=== PATIENT | male | born 1960 | race Caucasian/White ===

== ENCOUNTER 2016-11-07 13:15 | Day surgery (SDC) | payer OTHER ==
[2016-11-07 14:29] VITALS: RESP 18; TEMP 98
[2016-11-07 14:58] VITALS: BP 112/78; PULSE 92
--- NOTE | 2016-11-07 15:51 | US ---
EXAMINATION TYPE: US fine needle aspiration DATE OF EXAM: 11/07/2016 2:59 PM HISTORY: Supraclavicular mass, lung mass. FINDINGS: Maximal barrier technique was utilized. The skin overlying a suitable path to the patient' s mass in the supraclavicular location on the left was localized with ultrasound and the overlying sk in prepped and draped. Ultrasound was utilized with sterile technique. Lidocaine was used for local anesthesia. A 25-gauge needle was advanced under direct ultrasound guidance and aspirated specimen obtained of the mass. 3 additional passes with 25-gauge needle, single pass with 23-gauge were made. Specimen submitted to Pathology. Following the procedure, hemostasis achieved and the patient is di scharged in stable condition without complication. IMPRESSION:STATUS POST ULTRASOUND GUIDED FINE NEEDLE ASPIRATION BIOPSY OF left supraclavicular MASS, PATHOLOGY IS PENDING. THIS PROCEDURE IS PERFORMED BY THE UNDERSIGNED.
== END 2016-11-07 15:05 | disposition home or self-care (01) ==
LOC: RADPROMAIN 13:15
PROVIDERS: ATTEND Internal Medicine
DX: C77.0 Secondary and unspecified malignant neoplasm of lymph nodes of head, face and neck (principal)
CPT/HCPCS: 10022; 36415; 76942; 80048; 85025; 88173; 88305; 88341; 88342

== ENCOUNTER → 2016-11-07 | Outpatient (CLI) | payer OTHER ==
[2016-11-07 15:58] LABS: Basophils % (A) 0 %; CH 33.6; CHCM 34.8; Eosinophils % (A) 0 %; HCT 46.2 % (39.0-53.0); HDW 2.33; HGB 15.5 gm/dL (13.0-17.5); Luc # (Auto) 0.39; Luc % (Auto) 3; Lymphocytes # (A) 0.8 k/uL (1.0-4.8); Lymphocytes % (A) 6 %; MCH 32.5 pg (25.0-35.0); MCHC 33.6 g/dL (31.0-37.0); MCV 96.9 fL (80.0-100.0); Mean Platelet Volume 6.2; Monocytes # (A) 0.9 k/uL (0-1.0); Monocytes % (A) 6 %; Neutrophils % (A) 85 %; RBC 4.77 m/uL (4.30-5.90); RDW 12.2 % (11.5-15.5); WBC 14.1 k/uL (3.8-10.6)
[2016-11-07 16:09] LABS: Anion Gap 11 mmol/L; Blood Urea Nitrogen 11 mg/dL (9-20); Carbon Dioxide 29 mmol/L (22-30); Chloride 96 mmol/L (98-107); Glucose 101 mg/dL (74-99); Non-African American GFR(MDRD) >60 (>60 ml/min/1.73 sqM); Potassium 4.8 mmol/L (3.5-5.1); Sodium 136 mmol/L (137-145)
== END | disposition home or self-care (01) ==
LOC: LABWHC1 15:45
PROVIDERS: ATTEND Nurse Practitioner
DX: D72.829 Elevated white blood cell count, unspecified (principal); E87.1 Hypo-osmolality and hyponatremia
CPT/HCPCS: 36415; 80048; 85025

== ENCOUNTER 2016-11-23 14:08 | Inpatient (IN) | payer OTHER ==
[2016-11-23] MEDS ORDERED: MORPHINE SULFATE 4 MG/ML SYRINGE IVP STA (14:47)
[2016-11-23] MEDS ORDERED: ONDANSETRON 4 MG/2 ML VIAL IVP STA (14:47)
[2016-11-23 14:59] LABS: Basophils % (A) 0 %; CH 33.1; CHCM 35.1; Eosinophils % (A) 0 %; HCT 40.6 % (39.0-53.0); HDW 2.55; HGB 13.8 gm/dL (13.0-17.5); Luc # (Auto) 0.28; Luc % (Auto) 2; Lymphocytes # (A) 0.8 k/uL (1.0-4.8); Lymphocytes % (A) 4 %; MCH 32.2 pg (25.0-35.0); MCV 94.5 fL (80.0-100.0); Mean Platelet Volume 6.3; Monocytes # (A) 0.9 k/uL (0-1.0); Monocytes % (A) 5 %; Neutrophils % (A) 90 %; RBC 4.29 m/uL (4.30-5.90); WBC (Perox) 19.28
--- NOTE | 2016-11-23 15:03 | XR ---
EXAMINATION TYPE: XR chest 2V DATE OF EXAM: 11/23/2016 2:56 PM COMPARISON: Prior chest x-ray 02 November 2016 HISTORY: Difficulty breathing, small cell lung carcinoma TECHNIQUE: Frontal and lateral views of the chest are obtained. FINDINGS: Increasing opacity present in the left hemithorax, there is obscured left hemidiaphragm, l ikely left pleural effusion and associated atelectasis versus tumor. Interstitium is diffusely increa sed similar to prior exam. Heart is partially obscured. No pneumothorax. There are overlying cardiac leads. IMPRESSION: Findings may represent worsening of patient's tumor burden, pleural effusion and associa jeffrey atelectasis, there may be interstitial spread of patient's lung carcinoma.
[2016-11-23 15:13] LABS: INR 1.2 (<1.1); Partial Thromboplastin Time 27.7 sec (22.0-30.0)
--- NOTE | 2016-11-23 15:13 | ED ---
SOB HPI - General Chief Complaint: Shortness of Breath Stated Complaint: Diff breathing Time Seen by Provider: 11/23/16 14:30 Source: patient, family, RN notes reviewed Mode of arrival: ambulatory Limitations: no limitations - History of Present Illness Initial Comments: 48-year-old male presents emergency Department chief complaint increased shortness of breath. Patient states that he was recently diagnosed with lung cancer. Patient states that he has a large mass in his mediastinum region blocking most of his left lung. Patient states his left long has limited function. Patient states he has large lymph nodes on the left side of his neck. Patient is scheduled for an MRI today was brain to make sure has not metastasized to his brain. Patient states that he is to undergo chemo treatment starting Saturday. Patient states that he's been having increase in shortness breath over the last week or so. Patient states that he felt that he cannot wait until Saturday. They do have an appointment today with Dr. wan who did mention about possible admission. Patient denies any nausea vomiting. Patient denies fever, chills. He states that he did have a cough which was productive but is now nonproductive. - Related Data Home Medications Medication Instructions Recorded Confirmed Acetaminophen-Codeine 300-30mg 1 tab PO Q8H PRN 11/23/16 11/23/16 [Tylenol #3] Albuterol Inhaler [Ventolin Hfa 1 - 2 puff INHALATION RT-Q6H PRN 11/23/16 Inhaler] Morphine Sulfate ER [Ms Contin 30 mg PO TID 11/23/16 11/23/16 30Mg] Multivitamins, Thera [Multivitamin] 1 tab PO DAILY 11/23/16 11/23/16 Prochlorperazine [Compazine] 10 mg PO Q6H PRN 11/23/16 11/23/16 Allergies Allergy/AdvReac Type Severity Reaction Status Date / Time No Known Allergies Allergy Verified 11/23/16 14:38 Review of Systems ROS Statement: Those systems with pertinent positive or pertinent negative responses have been documented in the HPI. ROS Other: All systems not noted in ROS Statement are negative. Past Medical History Past Medical History: Hyperlipidemia Additional Past Medical History / Comment(s): hemorrhoids, past admission for etoh withdrawl over one year ago. 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 History of Any Multi-Drug Resistant Organisms: None Reported Past Surgical History: Appendectomy, Tonsillectomy Additional Past Surgical History / Comment(s): as a child, teeth extraction for dentures Past Anesthesia/Blood Transfusion Reactions: No Reported Reaction Past Psychological History: Depression Smoking Status: Current every day smoker Past Alcohol Use History: Daily, Heavy Additional Past Alcohol Use History / Comment(s): Patient is a smoker of one pack per day since he was 16 years of age. He states he does not smoke marijuana on a regular basis. He denies any street drug use. He states he went through AA in the 1980s and also 2015. occasionally drinks 1-2 beers maybe twice a week Past Drug Use History: Marijuana - Past Family History Mother Additional Family Medical History / Comment(s): Mom is 80 years of age with no major medical problems of the patient is aware of. Father Family Medical History: Cancer, Chest Pain / Angina, Coronary Artery Disease ( CAD), Myocardial Infarction ([place]) Additional Family Medical History / Comment(s): Father is 80 years of age and has history of alcoholism and quit drinking 30 years ago. He has history of CABG. lung and colon cancer. father is still living Sister(s) Additional Family Medical History / Comment(s): Patient has 3 sisters and one has history of alcoholism. He has no brothers. General Exam Limitations: no limitations General appearance: alert, in no apparent distress Head exam: Present: atraumatic, normocephalic, normal inspection Neck exam: Present: normal inspection, full ROM, lymphadenopathy (Large palpable lymph nodes on the left side of the neck). Absent: tenderness, meningismus Respiratory exam: Present: respiratory distress (Mild), decreased breath sounds (Left). Absent: normal lung sounds bilaterally, wheezes, rales, rhonchi, stridor Cardiovascular Exam: Present: regular rate, normal rhythm, normal heart sounds. Absent: systolic murmur, diastolic murmur, rubs, gallop, clicks GI/Abdominal exam: Present: soft, normal bowel sounds. Absent: distended, tenderness, guarding, rebound, rigid Course Vital Signs 11/23/16 14:21 Temperature 98.4 F Pulse Rate 112 H Respiratory 34 H Rate Blood Pressure 140/76 O2 Sat by Pulse 94 L Oximetry Medical Decision Making - Medical Decision Making 56-year-old male present emergency from for increased shortness breath. Patient has a large pleural effusion on the left most likely secondary to his lung cancer. Patient's d-dimer is elevated. Have a CT approximately 3 weeks ago which showed no pulmonary embolism. Patient will undergo a repeat CTA to rule out signs of infection. Patient will be treated for possible sepsis at this time. Patient will be admitted to hospitalist Dr. Rojas with consults Dr. Wan and Dr. Hart. - Lab Data Result diagrams: 11/23/16 14:45 11/23/16 14:45 Lab Results 11/23/16 11/23/16 11/23/16 Range/Units 14:45 14:45 14:45 WBC 19.0 H (3.8-10.6) k/uL RBC 4.29 L (4.30-5.90) m/uL Hgb 13.8 (13.0-17.5) gm/dL Hct 40.6 (39.0-53.0) % MCV 94.5 (80.0-100.0) fL MCH 32.2 (25.0-35.0) pg MCHC 34.0 (31.0-37.0) g/dL RDW 12.0 (11.5-15.5) % Plt Count 714 H (150-450) k/uL Neutrophils % 90 % Lymphocytes % 4 % Monocytes % 5 % Eosinophils % 0 % Basophils % 0 % Neutrophils # 17.0 H (1.3-7.7) k/uL Lymphocytes # 0.8 L (1.0-4.8) k/uL Monocytes # 0.9 (0-1.0) k/uL Eosinophils # 0.0 (0-0.7) k/uL Basophils # 0.0 (0-0.2) k/uL PT (9.0-12.0) sec INR (<1.1) APTT (22.0-30.0) sec D-Dimer (<0.60) mg/L FEU Sodium 128 L (137-145) mmol/L Potassium 4.8 (3.5-5.1) mmol/L Chloride 93 L (98-107) mmol/L Carbon Dioxide 23 (22-30) mmol/L Anion Gap 12 mmol/L BUN 11 (9-20) mg/dL Creatinine 0.54 L (0.66-1.25) mg/dL Est GFR (MDRD) Af Amer >60 (>60 ml/min/1.73 sqM) Est GFR (MDRD) Non-Af >60 (>60 ml/min/1.73 sqM) Glucose 218 H (74-99) mg/dL Plasma Lactic Acid Rick (0.7-2.0) mmol/L Calcium 8.3 L (8.4-10.2) mg/dL Magnesium 1.8 (1.6-2.3) mg/dL Total Bilirubin 0.4 (0.2-1.3) mg/dL AST 76 H (17-59) U/L ALT 39 (21-72) U/L Alkaline Phosphatase 217 H (38-126) U/L Total Creatine Kinase 159 (55-170) U/L CK-MB (CK-2) 4.0 H* (0.0-2.4) ng/mL CK-MB (CK-2) Rel Index 2.5 Troponin I <0.012 (0.000-0.034) ng/mL NT-Pro-B Natriuret Pep pg/mL Total Protein 6.0 L (6.3-8.2) g/dL Albumin 3.0 L (3.5-5.0) g/dL 11/23/16 11/23/16 11/23/16 Range/Units 14:45 14:45 14:45 WBC (3.8-10.6) k/uL RBC (4.30-5.90) m/uL Hgb (13.0-17.5) gm/dL Hct (39.0-53.0) % MCV (80.0-100.0) fL MCH (25.0-35.0) pg MCHC (31.0-37.0) g/dL RDW (11.5-15.5) % Plt Count (150-450) k/uL Neutrophils % % Lymphocytes % % Monocytes % % Eosinophils % % Basophils % % Neutrophils # (1.3-7.7) k/uL Lymphocytes # (1.0-4.8) k/uL Monocytes # (0-1.0) k/uL Eosinophils # (0-0.7) k/uL Basophils # (0-0.2) k/uL PT 12.0 (9.0-12.0) sec INR 1.2 (<1.1) APTT 27.7 (22.0-30.0) sec D-Dimer 1.07 H (<0.60) mg/L FEU Sodium (137-145) mmol/L Potassium (3.5-5.1) mmol/L Chloride (98-107) mmol/L Carbon Dioxide (22-30) mmol/L Anion Gap mmol/L BUN (9-20) mg/dL Creatinine (0.66-1.25) mg/dL Est GFR (MDRD) Af Amer (>60 ml/min/1.73 sqM) Est GFR (MDRD) Non-Af (>60 ml/min/1.73 sqM) Glucose (74-99) mg/dL Plasma Lactic Acid Rick 5.0 H* (0.7-2.0) mmol/L Calcium (8.4-10.2) mg/dL Magnesium (1.6-2.3) mg/dL Total Bilirubin (0.2-1.3) mg/dL AST (17-59) U/L ALT (21-72) U/L Alkaline Phosphatase (38-126) U/L Total Creatine Kinase (55-170) U/L CK-MB (CK-2) (0.0-2.4) ng/mL CK-MB (CK-2) Rel Index Troponin I (0.000-0.034) ng/mL NT-Pro-B Natriuret Pep 463 pg/mL Total Protein (6.3-8.2) g/dL Albumin (3.5-5.0) g/dL Disposition Clinical Impression: Lung mass, Pleural effusion, Dyspnea, Pneumonia Disposition: ADMITTED IP TO THIS HOSP Condition: Fair
[2016-11-23 15:27] LABS: Creatine Kinase 159 U/L (55-170)
[2016-11-23 15:33] LABS: ALT 39 U/L (21-72); AST 76 U/L (17-59); Alkaline Phosphatase 217 U/L (38-126); Anion Gap 12 mmol/L; Blood Urea Nitrogen 11 mg/dL (9-20); Calcium 8.3 mg/dL (8.4-10.2); Carbon Dioxide 23 mmol/L (22-30); Chloride 93 mmol/L (98-107); Glucose 218 mg/dL (74-99); Magnesium 1.8 mg/dL (1.6-2.3); Non-African American GFR(MDRD) >60 (>60 ml/min/1.73 sqM); Potassium 4.8 mmol/L (3.5-5.1); Sodium 128 mmol/L (137-145); Total Bilirubin 0.4 mg/dL (0.2-1.3)
[2016-11-23 15:39] LABS: Troponin I <0.012 ng/mL (0.000-0.034)
[2016-11-23] MEDS ORDERED: RX INFO: IV CONTRAST WAS GIVEN 1 EACH MISC MISCELLANE PRN (16:04)
[2016-11-23] MEDS ORDERED: LEVOFLOXACIN 750MG-D5W PMX 750 MG in DEXTROSE/WATER 1 150ML.BAG IVPB STA (16:08)
[2016-11-23] MEDS ORDERED: IV VANCOMYCIN PER PHARMACY 1 EACH MISC MISCELLANE PRN (16:08)
[2016-11-23] MEDS: SODIUM CHLORIDE 0.9% 500 ML IV SCH ×4 (16:30→18:00)
[2016-11-23] MEDS ORDERED: VANCOMYCIN 1,250 MG in SODIUM CHLORIDE 0.9% 250 ML IVPB ONE (17:00)
--- NOTE | 2016-11-23 17:23 | MR ---
EXAMINATION TYPE: MR brain wo/w con DATE OF EXAM: 11/23/2016 5:15 PM COMPARISON: None HISTORY: SMALL CELL LUNG CA CONTRAST: Standard multiplanar, multisequence MRI departmental protocol utilizing 14 mL intravenous MultiHance gadolinium contrast. FINDINGS: The ventricles and sulci appear normal for age. There is no mass effect nor midline shift. There is no sign of intracranial hemorrhage. The robins and white matter structures have normal signal pattern. There is no evidence of cerebral edema. Corpus callosum appears normal. Brainstem appears no rmal. Sella turcica is normal. There is no sign of pathologic enhancement. IMPRESSION: Normal MR scan of the brain.
[2016-11-23 17:45] LABS: Appearance,Urine Clear (Clear); Bilirubin,Urine Negative (Negative); Glucose,Urine (UA) 1+ (Negative); Ketones,Urine Negative (Negative); Leukocyte Esterase,Urine Negative (Negative); Nitrite,Urine Negative (Negative); PH, Urine 5.5 (5.0-8.0); Protein,Urine Trace (Negative); Specific Gravity,Urine 1.017 (1.001-1.035); UA Billing (MACRO vs. MICRO) CHEM; Urobilinogen,Urine <2.0 mg/dL (<2.0)
--- NOTE | 2016-11-23 17:46 | CT ---
EXAMINATION TYPE: CT angio chest DATE OF EXAM: 11/23/2016 5:37 PM COMPARISON: 11/02/2016 HISTORY: Patient complains of difficulty breathing and small cell lung CA. CT DLP: 202.4 mGycm Automated exposure control for dose reduction was used. CONTRAST: CTA scan of the thorax is performed with IV Contrast, patient injected with 100 mL of Omnipaque 350, pulmonary embolism protocol. There are 3-D post processed images.. FINDINGS: There is a 10 cm masslike infiltrate encasing the left pulmonary hilum involving the left lung. There is some narrowing of the left main pulmonary artery. There is narrowing of branches of the left pulm onary artery. Thoracic aorta appears normal without evidence of aneurysm or dissection. There is mediastinal adenop athy with lymph nodes that measure up to 4 cm. There is also bronchial adenopathy on the right side t hat measures up to 3 cm. There is subcarinal adenopathy. Heart size is normal. There is no pericardia l effusion. There is a large left pleural effusion with atelectasis of most of the left lower lobe. I see no filling defects in the pulmonary arteries. I see no bony destructive process. IMPRESSION: NO EVIDENCE OF PULMONARY EMBOLISM. EXTENSIVE MASSLIKE INFILTRATE AT THE LEFT PULMONARY HILUM WITH ENC ASEMENT OF MULTIPLE BRANCHES OF THE LEFT PULMONARY ARTERY WELL THE LEFT PULMONARY ARTERY AND LAVERNE ROSALIE NARROWING. NO PULMONARY EMBOLISM SEEN. THIS APPEARS WORSE THAN OLD CT SCAN OF 11/02/2016. THERE IS EXTENSIVE MEDIASTINAL AND RIGHT BRONCHIAL ADENOPATHY WELL. THERE IS SIGNIFICANT INCREASED PLEU RAL FLUID AND ATELECTASIS IN THE LEFT LOWER LOBE SINCE LAST EXAM. THERE ARE NEW PATCHY AREAS OF PULMO NARY EDEMA IN BOTH LUNGS COMPARED TO LAST EXAM CONSISTENT WITH PROGRESSION OF DISEASE.
[2016-11-23 21:10] LABS: Creatine Kinase 163 U/L (55-170)
[2016-11-23 21:23] LABS: Troponin I <0.012 ng/mL (0.000-0.034)
[2016-11-23 21:24] LABS: Creatine Kinase MB 4.2 ng/mL (0.0-2.4)
[2016-11-23] MEDS ORDERED: HYDROcodone/APAP 5-325MG 1 EACH TAB PO PRN (23:29)
[2016-11-24 03:03] LABS: Creatine Kinase 205 U/L (55-170)
[2016-11-24 03:15] LABS: Troponin I <0.012 ng/mL (0.000-0.034)
[2016-11-24 03:17] LABS: Creatine Kinase MB 5.2 ng/mL (0.0-2.4)
[2016-11-24] MEDS ORDERED: VANCOMYCIN 1,250 MG in SODIUM CHLORIDE 0.9% 250 ML IVPB SCH (06:00)
[2016-11-24] MEDS: VANCOMYCIN 1,250 MG in SODIUM CHLORIDE 0.9% 250 ML IVPB SCH ×2 (06:07→17:04)
--- NOTE | 2016-11-24 09:26 | US ---
EXAMINATION TYPE: US chest DATE OF EXAM: 11/24/2016 8:26 AM COMPARISON: NONE CLINICAL HISTORY: left pleural effusion. EXAM MEASUREMENTS: Left Pleural Effusion fluid pocket: 15.6 cm Left skin to fluid thickness: 3.1 cm Left side marked for possible thoracentesis outside the dept. Pulmonologists are able to review the images in the patient?s EMR. TECHNOLOGIST IMPRESSION: Complex fluid collection noted left pleura with lung noted anteriorly IMPRESSIONS: 1. Left pleural effusion
--- NOTE | 2016-11-24 10:17 | P.CONS ---
History of Present Illness - Reason for Consult Consult date: 11/24/16 Small cell lung cancer. Progressive shortness of breath - History of Present Illness The patient is a 56-year-old gentleman, who was seen by Dr. Wan in the office for a new consult on 11/23/16. The patient had been admitted to [facility] on 11/02/2016 because of increasing shortness of breath, as well as chest pressure that was worsened on laying back. These symptoms started about 6 weeks prior had progressively gotten worse. He also complaining of some upper airway congestion and cough productive of clear sputum. He had also noted lumps in the lower left neck which were mildly tender. He had a CTA of the chest done, which showed extensive mediastinal , peribronchial and supraclavicular adenopathy that was more prominent on the left compared to the right. He underwent an FNA on 11/07/16. A CTA was negative for any evidence of pulmonary embolism. The patient was subsequently discharged. The biopsy came back positive for small cell lung cancer. The patient was then referred to our service. When seen in the office, the patient was complaining of significant worsening of shortness of breath over the last few days. His cough and expectoration and also gotten much worse with the color the sputum now changing to yellow. He was also having significant pressure and pain across the upper part of the chest. Chemotherapy with [employer]-16 and carboplatin was recommended, to start on 11/26/16. The patient stated that due to his respiratory status, he felt that he could not "make it", and came to the ER. He had a repeat CTA done , due to d-dimer elevation. Again no PE was found. However appeared to be a significant left pleural effusion as well as marked progression and loss of volume in the left lung. He was therefore admitted for further management. The patient also had a brain MRI on 11/23/16 that was negative for metastasis. CTA images from 11/02/16, as well as from yesterday were personally reviewed. Consult was therefore placed for further evaluation and recommendations Review of Systems Constitutional: Reports weight loss (20-30 pounds in the last 6-7 weeks) Eyes: denies blurred vision, denies pain Ears: deny: decreased hearing, ear discharge, earache, tinnitus Ears, nose, mouth and throat: Denies headache, Denies sore throat Cardiovascular: Reports chest pain, Reports orthopnea, Reports palpitations, Reports shortness of breath Respiratory: Reports cough with sputum, Reports dyspnea Gastrointestinal: Reports as per HPI Genitourinary: Reports as per HPI (No specific complaints) Musculoskeletal: Denies myalgias Integumentary: Denies pruritus, Denies rash Neurological: Reports weakness Psychiatric: Denies anxiety, Denies depression Endocrine: Reports weight change Hematologic/Lymphatic: Reports lymphadenopathy Past Medical History Past Medical History: Hyperlipidemia Additional Past Medical History / Comment(s): hemorrhoids, past admission for etoh withdrawl over one year ago. 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 History of Any Multi-Drug Resistant Organisms: None Reported Past Surgical History: Appendectomy, Tonsillectomy Additional Past Surgical History / Comment(s): as a child, teeth extraction for dentures Past Anesthesia/Blood Transfusion Reactions: No Reported Reaction Past Psychological History: Depression Smoking Status: Former smoker Past Alcohol Use History: Daily, Heavy Additional Past Alcohol Use History / Comment(s): Patient is a smoker of one pack per day since he was 16 years of age. He states he does not smoke marijuana on a regular basis. He denies any street drug use. He states he went through AA in the 1980s and also 2015. occasionally drinks 1-2 beers maybe twice a week Past Drug Use History: Marijuana - Past Family History Mother Additional Family Medical History / Comment(s): Mom is 80 years of age with no major medical problems of the patient is aware of. Father Family Medical History: Cancer, Chest Pain / Angina, Coronary Artery Disease ( CAD), Myocardial Infarction ([place]) Additional Family Medical History / Comment(s): Father is 80 years of age and has history of alcoholism and quit drinking 30 years ago. He has history of CABG. lung and colon cancer. father is still living Sister(s) Additional Family Medical History / Comment(s): Patient has 3 sisters and one has history of alcoholism. He has no brothers. Medications and Allergies Home Medications Medication Instructions Recorded Confirmed Type Acetaminophen-Codeine 300-30mg 1 tab PO Q8H PRN 11/23/16 11/23/16 History [Tylenol #3] Albuterol Inhaler [Ventolin Hfa 1 - 2 puff INHALATION RT-Q6H PRN 11/23/16 History Inhaler] Morphine Sulfate ER [Ms Contin 30 mg PO TID 11/23/16 11/23/16 History 30Mg] Multivitamins, Thera [Multivitamin] 1 tab PO DAILY 11/23/16 11/23/16 History Prochlorperazine [Compazine] 10 mg PO Q6H PRN 11/23/16 11/23/16 History Allergies Allergy/AdvReac Type Severity Reaction Status Date / Time No Known Allergies Allergy Verified 11/23/16 14:38 Physical Exam Vitals: Vital Signs Temp Pulse Pulse Resp BP BP Pulse Ox 11/24/16 04:00 97.3 F L 113 H 20 118/73 92 L 11/23/16 23:00 119 H 22 11/23/16 22:17 97.7 F 119 H 20 117/69 94 L 11/23/16 21:19 98.0 F 124 H 22 105/65 96 11/23/16 19:15 98.2 F 125 H 24 115/60 95 11/23/16 18:30 119 H 22 112/68 95 11/23/16 18:15 98.1 F 120 H 23 115/68 95 11/23/16 18:00 123 H 22 134/70 95 11/23/16 17:45 110 H 20 126/68 95 11/23/16 17:38 115 H 24 112/67 97 11/23/16 17:30 97.8 F 121 H 24 130/69 96 11/23/16 16:28 99.0 F 116 H 28 H 137/88 95 Intake and Output 11/23/16 11/24/16 11/24/16 22:59 06:59 14:59 Intake Total 2500 200 120 Balance 2500 200 120 Intake: Amount of Fluid Infused ( 2000 ml) Oral 500 200 120 Other: # Voids 1 Weight 65.771 kg 65.7 kg - Constitutional General appearance: no acute distress - EENT Eyes: EOMI, PERRLA ENT: hearing grossly normal, normal oropharynx - Neck Neck: lymphadenopathy (Confluent adenopathy involving the left lower cervical chain, and left supraclavicular area.) - Respiratory Respiratory: left: diminished (Essentially absent breath sounds in the lower 2/3 -3/4 of the chest. Breath sounds are heard in the left upper lobe, although these may be transmitted) - Cardiovascular Rhythm: regular Heart sounds: normal: S1, S2 - Gastrointestinal General gastrointestinal: normal bowel sounds, soft - Integumentary Integumentary: normal - Neurologic Neurologic: CNII-XII intact - Musculoskeletal Musculoskeletal: generalized weakness - Psychiatric Psychiatric: A&O x's 3, appropriate affect Results CBC & Chem 7: 11/23/16 14:45 11/23/16 14:45 Labs: Abnormal Lab Results - Last 24 Hours (Table) 11/23/16 11/23/16 11/23/16 Range/Units 17:35 18:26 20:28 Plasma Lactic Acid Rick 2.7 H* (0.7-2.0) mmol/L Total Creatine Kinase (55-170) U/L CK-MB (CK-2) 4.2 H* (0.0-2.4) ng/mL Urine Protein Trace H (Negative) Urine Glucose (UA) 1+ H (Negative) 11/24/16 Range/Units 02:18 Plasma Lactic Acid Rick (0.7-2.0) mmol/L Total Creatine Kinase 205 H (55-170) U/L CK-MB (CK-2) 5.2 H* (0.0-2.4) ng/mL Urine Protein (Negative) Urine Glucose (UA) (Negative) Microbiology - Last 24 Hours (Table) 11/23/16 17:35 Urine Culture - Preliminary Urine,Voided Chest x-ray: report reviewed CT scan - chest: report reviewed (CTAs- from 11/02/16, as well as 11/23/16), image reviewed (CTAs- from 11/02/16, as well as 11/23/16) MRI - head: report reviewed Assessment and Plan (1) Dyspnea Narrative/Plan: The patient has had progressive dyspnea as noted. This correlates with the progression of lung findings also. The patient actually feels much better this morning. At rest, he appears to be fairly comfortable on 4 L of oxygen. On the progressive shortness of breath is mostly due to progression of volume loss in the lung as well as the pleural effusion. There may also be an element of tracheal bronchitis or pneumonia, given the change in color of sputum. As noted he is currently improved with antibiotics and oxygen. The patient is to be seen by pulmonary. He does appear to have developed a significant pleural effusion with the fluid pocket to 15.6 cm. He was therefore most likely benefit from thoracentesis. I will start the patient on Decadron, which is generally quite effective in small cell lung cancer to transiently relieve mass effect on the airways and blood vessels. Given the improvement observed already, as well as expected further improvement with the steroids and thoracentesis, I do not anticipate any need for urgent radiation. In addition the patient is supposed to start chemotherapy early next week, which should also be quite effective in relieving symptoms quickly, given the (usual) rapid response is small cell lung cancer to the same. Status: Acute (2) Pleural effusion Narrative/Plan: fluid Pocket appears to be quite substantial. As noted this represents a significant new finding compared to the previous CTA. The patient is to be seen by the pulmonary service and will likely have a thoracentesis. This would hopefully improve symptoms. Positive cytology would confirm stage IV disease, though on my review of the computed tomography scan images, there do appear to be suspicious lesions in the liver already. Status: Acute (3) Small cell carcinoma of left lung Narrative/Plan: As noted above, the patient likely has metastatic disease, and is presenting with rapid progression within 2-3 weeks. Symptomatic improvement should occur with aggressive supportive measures as described above. He is scheduled start chemotherapy on 11/26/16, which in general should also lead to rapid improvement in symptoms. Status: Acute
[2016-11-24] MEDS: MORPHINE SULFATE ER 15 MG TABLET PO SCH ×2 (10:58→21:56)
--- NOTE | 2016-11-24 12:22 | P.CNPUL ---
History of Present Illness Consult date: 11/24/16 Requesting physician: Chad Rojas Reason for consult: pleural effusion Chief complaint: Shortness of breath History of present illness: This is a 56-year-old white male, smoker, familiar to my service, patient presented to the hospital a few weeks ago with shortness of breath, cervical lymphadenopathy, mediastinal adenopathy, and he underwent ultrasound-guided biopsy of a cervical lymph node. Patient was diagnosed as having small cell lung cancer. I saw the patient on follow-up in my office, and I recommended referral to Dr. Wan who saw him on 11/23/2016, and the patient by then was complaining of worsening shortness of breath. Congestion, cough with clear sputum production. Patient was sent to the ER, and his workup included a CT of the chest which showed no evidence of pulmonary embolism. But it showed extensive mediastinal peribronchial and supraclavicular adenopathy and a large left pleural effusion. Hence the patient was admitted, and I was asked to see him on consultation. Patient is scheduled to start chemotherapy next week by Dr. naomi mercado. After I evaluated the patient, I reviewed the CT of the chest I also reviewed the ultrasound, I proceeded to left thoracentesis, and 2200 mL of serosanguineous fluid drained from the left pleural space. Patient is already on bronchodilators, he is ready on antibiotics for what seems to be a picture of postobstructive pneumonitis. [place] much better after the thoracentesis. Review of Systems Constitutional: Reports weight loss (20-30 pounds in the last 6-7 weeks) Eyes: denies blurred vision, denies pain Ears: deny: decreased hearing, ear discharge, earache, tinnitus Ears, nose, mouth and throat: Denies headache, Denies sore throat Cardiovascular: Reports chest pain, Reports orthopnea, Reports palpitations, Reports shortness of breath Respiratory: Reports cough with sputum, Reports dyspnea Gastrointestinal: Reports as per HPI Genitourinary: Reports as per HPI (No specific complaints) Musculoskeletal: Denies myalgias Integumentary: Denies pruritus, Denies rash Neurological: Reports weakness Psychiatric: Denies anxiety, Denies depression Endocrine: Reports weight change Hematologic/Lymphatic: Reports lymphadenopathy Past Medical History Past Medical History: Hyperlipidemia Additional Past Medical History / Comment(s): hemorrhoids, past admission for etoh withdrawl over one year ago. 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 Patient was just recently diagnosed as having small cell lung cancer. History of Any Multi-Drug Resistant Organisms: None Reported Past Surgical History: Appendectomy, Tonsillectomy Additional Past Surgical History / Comment(s): as a child, teeth extraction for dentures Past Anesthesia/Blood Transfusion Reactions: No Reported Reaction Past Psychological History: Depression Smoking Status: Former smoker Past Alcohol Use History: Daily, Heavy Additional Past Alcohol Use History / Comment(s): Patient is a smoker of one pack per day since he was 16 years of age. He states he does not smoke marijuana on a regular basis. He denies any street drug use. He states he went through AA in the 1980s and also 2015. occasionally drinks 1-2 beers maybe twice a week Past Drug Use History: Marijuana - Past Family History Mother Additional Family Medical History / Comment(s): Mom is 80 years of age with no major medical problems of the patient is aware of. Father Family Medical History: Cancer, Chest Pain / Angina, Coronary Artery Disease ( CAD), Myocardial Infarction ([place]) Additional Family Medical History / Comment(s): Father is 80 years of age and has history of alcoholism and quit drinking 30 years ago. He has history of CABG. lung and colon cancer. father is still living Sister(s) Additional Family Medical History / Comment(s): Patient has 3 sisters and one has history of alcoholism. He has no brothers. Medications and Allergies Home Medications Medication Instructions Recorded Confirmed Type Acetaminophen-Codeine 300-30mg 1 tab PO Q8H PRN 11/23/16 11/23/16 History [Tylenol #3] Albuterol Inhaler [Ventolin Hfa 1 - 2 puff INHALATION RT-Q6H PRN 11/23/16 History Inhaler] Morphine Sulfate ER [Ms Contin 30 mg PO TID 11/23/16 11/23/16 History 30Mg] Multivitamins, Thera [Multivitamin] 1 tab PO DAILY 11/23/16 11/23/16 History Prochlorperazine [Compazine] 10 mg PO Q6H PRN 11/23/16 11/23/16 History Allergies Allergy/AdvReac Type Severity Reaction Status Date / Time No Known Allergies Allergy Verified 11/23/16 14:38 Physical Exam Vitals: Vital Signs Temp Pulse Pulse Resp BP BP Pulse Ox 11/24/16 11:07 97.6 F 107 H 20 119/81 94 L 11/24/16 08:00 97.8 F 117 H 20 132/81 93 L 11/24/16 04:00 97.3 F L 113 H 20 118/73 92 L 11/23/16 23:00 119 H 22 11/23/16 22:17 97.7 F 119 H 20 117/69 94 L 11/23/16 21:19 98.0 F 124 H 22 105/65 96 11/23/16 19:15 98.2 F 125 H 24 115/60 95 11/23/16 18:30 119 H 22 112/68 95 11/23/16 18:15 98.1 F 120 H 23 115/68 95 11/23/16 18:00 123 H 22 134/70 95 11/23/16 17:45 110 H 20 126/68 95 11/23/16 17:38 115 H 24 112/67 97 11/23/16 17:30 97.8 F 121 H 24 130/69 96 11/23/16 16:28 99.0 F 116 H 28 H 137/88 95 Intake and Output 11/23/16 11/24/16 11/24/16 22:59 06:59 14:59 Intake Total 2500 200 1450 Balance 2500 200 1450 Intake: Amount of Fluid Infused ( 2000 ml) Intake, IV Titration 850 Amount Levofloxacin 750Mg-D5w 600 Pmx 750 mg In Dextrose/ Water 1 150ml.bag @ 100 mls/hr IVPB ONCE STA Rx#: [id number] Vancomycin 1,250 mg In 250 Sodium Chloride 0.9% 250 ml @ 125 mls/hr IVPB Q12H [facility] Rx#:[id number] Oral 500 200 600 Other: # Voids 1 Weight 65.771 kg 65.7 kg - Constitutional General appearance: no acute distress - EENT Eyes: EOMI, PERRLA ENT: hearing grossly normal, normal oropharynx - Neck Neck: lymphadenopathy (Confluent adenopathy involving the left lower cervical chain, and left supraclavicular area.) - Respiratory Respiratory: left: diminished (Essentially absent breath sounds in the lower 2/3 -3/4 of the chest. Breath sounds are heard in the left upper lobe, although these may be transmitted) - Cardiovascular Rhythm: regular Heart sounds: normal: S1, S2 - Gastrointestinal General gastrointestinal: normal bowel sounds, soft - Integumentary Integumentary: normal - Neurologic Neurologic: CNII-XII intact - Musculoskeletal Musculoskeletal: generalized weakness - Psychiatric Psychiatric: A&O x's 3, appropriate affect Results - Laboratory Findings CBC and BMP: 11/23/16 14:45 11/23/16 14:45 PT/INR, D-dimer PT 12.0 sec (9.0-12.0) 11/23/16 14:45 INR 1.2 (<1.1) 11/23/16 14:45 D-Dimer 1.07 mg/L FEU (<0.60) H 11/23/16 14:45 Abnormal lab findings: Abnormal Labs 11/23/16 11/23/16 11/23/16 17:35 18:26 20:28 Plasma Lactic Acid Rick 2.7 H* Total Creatine Kinase CK-MB (CK-2) 4.2 H* Urine Protein Trace H Urine Glucose (UA) 1+ H 11/24/16 02:18 Plasma Lactic Acid Rick Total Creatine Kinase 205 H CK-MB (CK-2) 5.2 H* Urine Protein Urine Glucose (UA) - Diagnostic Findings CT scan - chest: image reviewed (Agree with reading as per the radiologist.) Assessment and Plan Plan: Impression: 1 dyspnea, multifactorial, mostly secondary to large left pleural effusion, small cell lung cancer and postobstructive pneumonitis, and significant underlying COPD. Recommendation: Agree with the present treatment plan, patient will undergo a left sided thoracentesis which I performed at bedside, and I was able to drain 2200 mL of serosanguineous fluid. Patient will remain on bronchodilators, antibiotics, steroids, and hopefully will start chemotherapy on this patient along with radiation therapy in the near future. Overall prognosis remains poor and guarded. Time with Patient: Greater than 30
--- NOTE | 2016-11-24 12:25 | P.PN ---
Progress Note - Text Chest x-ray was reviewed postthoracentesis, and there seems to be a loculated area of pneumothorax in the left lower lobe area, it's clearly a picture of trapped lung, and poor expansion of the lung after thoracentesis. Not much to be done for it at this point, we'll continue to monitor that area, and hopefully will improve over the next 24 hours. Follow-up chest x-ray will be done later today.
--- NOTE | 2016-11-24 12:33 | XR ---
EXAMINATION TYPE: XR chest 1V portable DATE OF EXAM: 11/24/2016 12:24 PM COMPARISON: NONE INDICATION: Status post thoracentesis TECHNIQUE: Single frontal view of the chest is obtained. FINDINGS: The heart size is indistinct The pulmonary vasculature is normal. There is a large consolidation on the left. Mild increase infiltrate is present on the right. No pneu mothorax is evident post thoracentesis. IMPRESSION: 1. No pneumothorax postthoracentesis. 2. Bilateral infiltrates greater on the left.
[2016-11-24] MEDS ORDERED: ACETAMINOPHEN TAB 500 MG TAB PO PRN (14:22)
[2016-11-24] MEDS ORDERED: TEMAZEPAM 15 MG CAP PO PRN (14:22)
[2016-11-24] MEDS: LEVOFLOXACIN 750MG-D5W PMX 750 MG in DEXTROSE/WATER 1 150ML.BAG IVPB SCH (15:08)
[2016-11-24] MEDS: DEXAMETHASONE SOD PHOSPHATE 4 MG/ML 1 ML VIAL IM SCH ×3 (15:08→23:43)
[2016-11-24] MEDS: ALPRAZolam 0.25 MG TAB PO PRN (17:03)
--- NOTE | 2016-11-24 17:23 | XR ---
EXAMINATION TYPE: XR chest 1V portable DATE OF EXAM: 11/24/2016 3:07 PM COMPARISON: 11/24/2016 INDICATION: Postthoracentesis TECHNIQUE: Single frontal view of the chest is obtained. FINDINGS: Heart size is indistinct. Small left pleural effusion may be present. No pneumothorax is evident post thoracentesis. Consolidat ions in the left perihilar region. Mild increased lung markings are present through the right mid and lower lung field. IMPRESSION: 1. No pneumothorax postthoracentesis. 2. Small to moderate left pleural effusion. 3. Left perihilar infiltrate. 4. Mild right perihilar and right lower lobe infiltrates
[2016-11-24] MEDS: SYMBICORT 160-4.5 MCG INHALER INHALATION SCH (21:08)
[2016-11-24] MEDS: HEPARIN SODIUM,PORCINE 5,000 UNIT/ML 1 ML VIAL SQ SCH (21:56)
--- NOTE | 2016-11-24 22:28 | HP ---
DATE OF ADMISSION: 11/23/2016 CHIEF COMPLAINT: Shortness of breath and left-sided pleural effusion. HISTORY OF PRESENT ILLNESS: This 56-year-old gentleman with past medical history of multiple medical problems including recently diagnosed non-small cell lung cancer, history of hyperlipidemia, history of depression. history of nicotine dependence being followed by Dr. Tello in [place] was complaining of shortness of breath. The patient was taken to [facility]. Noted to have significant left pleural effusion, post obstructive pneumonia and as well as diffuse infiltrates in both lungs was also suspected and the patient is admitted for further evaluation and treatment. The patient was extremely short of breath and evaluation also raised the possibility of sepsis with WBC 19 and plasma lactic acid 5 at the time of admission. The patient started on broad spectrum IV antibiotics. Dr. Hart evaluated the patient and performed 2.2 liters of serosanguineous fluid with significant relief in the symptoms. A pneumothorax was suspected. There is no history of fever, rigors or chills. No history of headache, loss of consciousness or seizures. PAST MEDICAL HISTORY: History of recently diagnosed non-small cell lung cancer, history of hyperlipidemia, history of appendectomy, tonsillectomy, depression, history of nicotine dependence. Medications prior to admission includes: 1. Compazine 10 mg q.6h p.r.n. 2. Multivitamin one p.o. daily. 3. MS Contin 30 mg p.o. t.i.d. 4. Ventolin HFA one to two puffs q.6h p.r.n. 5. Tylenol #3 one tablet q.8 p.r.n. ALLERGIES: None. FAMILY HISTORY: History of cancer, coronary artery disease, myocardial infarction in the family. SOCIAL HISTORY: Previous history of smoking. No history of current smoking. No alcohol intake. REVIEW OF SYSTEMS: HEENT: No diminished hearing. No diminished vision. CARDIOVASCULAR: No angina or palpitations. RESPIRATORY: As mentioned earlier. GI: No nausea. : No dysuria. Nervous system: No numbness or weakness. ALLERGY/IMMUNOLOGY: No asthma or hayfever. MUSCULOSKELETAL: As mentioned earlier. HEMATOLOGY/ONCOLOGY: As mentioned earlier. ENDOCRINE: No diabetes mellitus or hypothyroidism. CONSTITUTIONAL: As mentioned earlier. DERMATOLOGY: Negative. RHEUMATOLOGY: Negative. PSYCHIATRY: As mentioned earlier. PHYSICAL EXAMINATION: The patient is alert and oriented times three. Pulse 107, blood pressure 119/81, respiratory rate 20, temperature 97.7, pulse ox 94% on 3 L. HEENT: Conjunctivae normal. Oral mucosa moist. NECK: No jugular venous distention. No carotid bruit. No lymph node enlargement. CARDIOVASCULAR: S1, S2 muffled. No S3, no S4. RESPIRATORY: Breath sounds diminished at the bases. A few scattered rhonchi and crackles. ABDOMEN: Soft, nontender. No mass palpable. Scaphoid. Legs: No edema, no swelling. Nervous system: Higher functions as mentioned earlier. Moves all four limbs. No focal motor or sensory deficits. LYMPHATICS: Lymphadenopathy in cervical area present. Otherwise, skin, no ulcer, rash or bleeding. Joints: No active deforming arthropathy. LABS: WBC 19, hemoglobin 13.8. D. dimer is 1.07, sodium 128. Plasma lactic acid 5 and CK is 205, troponins negative. UA noted. ASSESSMENT: 1. Shortness of breath possible multifactorial with possibly left-sided pleural effusion, postobstructive pneumonia as well as lung malignancy. 2. Status post thoracocentesis 2.2 liters serosanguineous fluid. 3. Recently diagnosed non-small cell lung cancer with lymphadenopathy possible stage IV. 4. Status post cervical lymph node biopsy. 5. Possible bibasilar pneumonia, possibly gram-negative, bilateral pneumonia, possibly gram-negative with sepsis, present on admission. 6. Increased lactic acid. 7. Increased WBC. 8. Hypoalbuminemia with mild to moderate protein calorie malnutrition. 9. Hyponatremia hypovolemic. 10. History hyperlipidemia. 11. History of hemorrhoids. 12. History of depression. 13. Remote history of nicotine dependence. 14. FULL CODE. RECOMMENDATIONS AND DISCUSSION: In this 56-year-old gentleman who presented with multiple complex medical issues, we will monitor the patient closely. Continue the current medications, continue symptomatic treatment , continue with bronchodilators, continue with empiric antibiotics. Closely follow with Dr. Hart. Prognosis guarded because of multiple complex medical issues and will repeat the chest x-ray. Labs have been added . See orders for detail. Prognosis guarded. Further recommendations to follow. We will obtain cultures also. MTDD
[2016-11-25] MEDS: HYDROmorphone 1 MG/ML 1 ML SYRINGE IVP PRN (04:11)
[2016-11-25] MEDS ORDERED: VANCOMYCIN TROUGH DUE 1 EACH MISC MISCELLANE ONE (05:00)
[2016-11-25 05:55] LABS: Basophils % (A) 0 %; CH 32.6; CHCM 34.2; Eosinophils % (A) 0 %; HCT 37.4 % (39.0-53.0); HDW 2.59; HGB 12.3 gm/dL (13.0-17.5); Luc # (Auto) 0.17; Luc % (Auto) 1; Lymphocytes # (A) 0.4 k/uL (1.0-4.8); Lymphocytes % (A) 2 %; MCH 31.5 pg (25.0-35.0); MCHC 32.9 g/dL (31.0-37.0); MCV 95.6 fL (80.0-100.0); Mean Platelet Volume 6.1; Monocytes # (A) 0.6 k/uL (0-1.0); Monocytes % (A) 3 %; Neutrophils # (A) 17.1 k/uL (1.3-7.7); Neutrophils % (A) 94 %; RBC 3.91 m/uL (4.30-5.90); RDW 12.1 % (11.5-15.5); WBC 18.2 k/uL (3.8-10.6); WBC (Perox) 18.99
[2016-11-25 06:17] LABS: ALT 38 U/L (21-72); AST 57 U/L (17-59); Alkaline Phosphatase 185 U/L (38-126); Anion Gap 7 mmol/L; Blood Urea Nitrogen 9 mg/dL (9-20); Calcium 8.1 mg/dL (8.4-10.2); Carbon Dioxide 26 mmol/L (22-30); Chloride 96 mmol/L (98-107); Glucose 129 mg/dL (74-99); Non-African American GFR(MDRD) >60 (>60 ml/min/1.73 sqM); Sodium 129 mmol/L (137-145); Total Bilirubin 0.3 mg/dL (0.2-1.3); Total Protein 5.2 g/dL (6.3-8.2)
[2016-11-25] MEDS: PANTOPRAZOLE 40 MG TABLET PO SCH (06:45)
[2016-11-25] MEDS: VANCOMYCIN 1,250 MG in SODIUM CHLORIDE 0.9% 250 ML IVPB SCH ×3 (06:45→23:32)
[2016-11-25] MEDS: SYMBICORT 160-4.5 MCG INHALER INHALATION SCH ×2 (07:39→19:49)
[2016-11-25] MEDS: DEXAMETHASONE SOD PHOSPHATE 4 MG/ML 1 ML VIAL IM SCH ×3 (08:53→23:32)
[2016-11-25] MEDS: HEPARIN SODIUM,PORCINE 5,000 UNIT/ML 1 ML VIAL SQ SCH ×2 (08:53→23:29)
[2016-11-25] MEDS: MORPHINE SULFATE ER 15 MG TABLET PO SCH ×2 (08:53→23:27)
--- NOTE | 2016-11-25 10:17 | PCN ---
DATE OF PROCEDURE: PROCEDURE: Left-sided thoracentesis. PREOPERATIVE DIAGNOSES: Small cell lung cancer and pleural effusion. POSTOPERATIVE DIAGNOSES: Small cell lung cancer and pleural effusion. ANESTHESIA USED: 2 mL of 1% lidocaine. PROCEDURE: Patient was placed in a sitting upright position. The area below the left scapula was prepared in a sterile fashion and drapes were applied. The area of the fluid was earlier localized by ultrasound. At the level of that ultrasound marking, area was locally anesthetized, and a 26-gauge needle was inserted at the same site, advanced until the fluid was localized with the needle. Then a standard thoracentesis catheter and needle were used. They were both inserted at the same site, advanced into the pleural space and as we entered the pleural space and fluid was removed that catheter was advanced over the needle and the needle was pulled out of the pleural space. Freely flowing fluid was removed roughly at 2200 mL of serosanguineous fluid drained from the left pleural space. Fluid was sent for cultures and for cytology. The procedure was well tolerated. No evidence of any immediate complications. Chest x-ray was ordered postoperatively.
--- NOTE | 2016-11-25 12:06 | P.PN ---
Subjective Principal diagnosis: Shortness of breath secondary to advanced small cell lung cancer, postobstructive pneumonitis, and left pleural effusion. This is a 56-year-old white male, smoker, familiar to my service, patient presented to the hospital a few weeks ago with shortness of breath, cervical lymphadenopathy, mediastinal adenopathy, and he underwent ultrasound-guided biopsy of a cervical lymph node. Patient was diagnosed as having small cell lung cancer. I saw the patient on follow-up in my office, and I recommended referral to Dr. Wan who saw him on 11/23/2016, and the patient by then was complaining of worsening shortness of breath. Congestion, cough with clear sputum production. Patient was sent to the ER, and his workup included a CT of the chest which showed no evidence of pulmonary embolism. But it showed extensive mediastinal peribronchial and supraclavicular adenopathy and a large left pleural effusion. Hence the patient was admitted, and I was asked to see him on consultation. Patient is scheduled to start chemotherapy next week by Dr. naomi mercado. After I evaluated the patient, I reviewed the CT of the chest I also reviewed the ultrasound, I proceeded to left thoracentesis, and 2200 mL of serosanguineous fluid drained from the left pleural space. Patient is already on bronchodilators, he is ready on antibiotics for what seems to be a picture of postobstructive pneumonitis. [place] much better after the thoracentesis. Patient was reevaluated today on 11/25/2016, feeling better breathing easier, however his follow-up chest x-ray last night showed some of the effusion seems to be coming back. Hence the patient will likely benefit from having a Pleurx catheter placement. And I will go ahead and recommend consultation to thoracic surgery. In the meantime the patient will remain on antibiotics and bronchodilators. And I believe he is scheduled to start chemotherapy soon by oncology. CBC today showed leukocytosis with WBC count of 18.2. Electrolytes are normal except for a sodium of 129 secondary to paraneoplastic syndrome/ small cell lung cancer. Objective - Vital Signs Vital signs: Vital Signs Temp 97.0 F L 11/25/16 11:56 Pulse 108 H 11/25/16 11:56 Resp 18 11/25/16 11:56 BP 130/70 11/25/16 11:56 Pulse Ox 91 L 11/25/16 11:56 Intake & Output 11/24/16 11/25/16 11/25/16 18:59 06:59 18:59 Intake Total 4090 830 6501 Balance 3117 529 0262 Weight 65.7 kg Intake: IV 500 .9NS @ 100/HR 500 Intake, IV Titration 850 250 Amount Levofloxacin 750Mg-D5w 600 Pmx 750 mg In Dextrose/ Water 1 150ml.bag @ 100 mls/hr IVPB ONCE STA Rx#: [id number] Vancomycin 1,250 mg In 250 Sodium Chloride 0.9% 250 ml @ 125 mls/hr IVPB Q12H [facility] Rx#:[id number] Vancomycin 1,250 mg In 250 Sodium Chloride 0.9% 250 ml @ 125 mls/hr IVPB Q8H [facility] Rx#:[id number] Oral [phone] Other: # Voids 3 2 - Exam - Constitutional General appearance: no acute distress - EENT Eyes: EOMI, PERRLA ENT: hearing grossly normal, normal oropharynx - Neck Neck: lymphadenopathy (Confluent adenopathy involving the left lower cervical chain, and left supraclavicular area.) - Respiratory Respiratory: left: diminished (Essentially absent breath sounds in the lower 2/3 -3/4 of the chest. Breath sounds are heard in the left upper lobe, although these may be transmitted) - Cardiovascular Rhythm: regular Heart sounds: normal: S1, S2 - Gastrointestinal General gastrointestinal: normal bowel sounds, soft - Integumentary Integumentary: normal - Neurologic Neurologic: CNII-XII intact - Musculoskeletal Musculoskeletal: generalized weakness - Psychiatric Psychiatric: A&O x's 3, appropriate affect - Labs CBC & Chem 7: 11/25/16 05:29 11/25/16 05:29 Labs: Abnormal Lab Results - Last 24 Hours (Table) 11/25/16 11/25/16 Range/Units 05:29 05:29 WBC 18.2 H (3.8-10.6) k/uL RBC 3.91 L (4.30-5.90) m/uL Hgb 12.3 L (13.0-17.5) gm/dL Hct 37.4 L (39.0-53.0) % Plt Count 566 H (150-450) k/uL Neutrophils # 17.1 H (1.3-7.7) k/uL Lymphocytes # 0.4 L (1.0-4.8) k/uL Sodium 129 L (137-145) mmol/L Chloride 96 L (98-107) mmol/L Creatinine 0.51 L (0.66-1.25) mg/dL Glucose 129 H (74-99) mg/dL Calcium 8.1 L (8.4-10.2) mg/dL Alkaline Phosphatase 185 H (38-126) U/L Total Protein 5.2 L (6.3-8.2) g/dL Albumin 2.5 L (3.5-5.0) g/dL Microbiology - Last 24 Hours (Table) 11/24/16 12:00 Gram Stain - Preliminary Pleural Fluid Body Fluid Culture - Preliminary 11/23/16 17:35 Urine Culture - Final Urine,Voided 11/24/16 12:00 Anaerobic Culture - Preliminary Pleural Fluid Assessment and Plan Plan: Impression: 1 dyspnea, multifactorial, mostly secondary to large left pleural effusion, small cell lung cancer and postobstructive pneumonitis, and significant underlying COPD. Recommendation: Agree with the present treatment plan, patient underwent left sided thoracentesis which I performed at bedside, and I was able to drain 2200 mL of serosanguineous fluid. Patient will remain on bronchodilators, antibiotics, steroids, and hopefully will start chemotherapy on this patient along with radiation therapy in the near future. Overall prognosis remains poor and guarded. I will initiate consultation with Dr. Rosario for possible Pleurx catheter placement next week. Time with Patient: Less than 30
--- NOTE | 2016-11-25 13:03 | P.GSCN ---
History of Present Illness Consult date: 11/25/16 Reason for Consult: Recurrent pleural effusion History of present illness: The patient is a 56-year-old male with a history of long-standing tobacco use, who normally does not see a physician, who presented to the hospital with shortness of breath. He was recently diagnosed with small cell lung cancer. He is currently being worked up for chemotherapy by oncology. Imaging studies revealed a large left pleural effusion. A thoracentesis was performed yesterday by Dr. Hart with removal of 2200 mL of serosanguineous fluid. Follow-up chest x-ray revealed persistent left pleural effusion. Placement of a Pleurx catheter was recommended. At the time my examination, the patient was resting comfortably in bed, denying shortness of breath. Review of Systems All systems: negative - Constitutional Reports fatigue, Reports weight loss - Cardiovascular Reports dyspnea on exertion Past Medical History Past Medical History: Hyperlipidemia Additional Past Medical History / Comment(s): hemorrhoids, past admission for etoh withdrawl over one year ago. 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 Patient was just recently diagnosed as having small cell lung cancer. History of Any Multi-Drug Resistant Organisms: None Reported Past Surgical History: Appendectomy, Tonsillectomy Additional Past Surgical History / Comment(s): as a child, teeth extraction for dentures Past Anesthesia/Blood Transfusion Reactions: No Reported Reaction Past Psychological History: Depression Smoking Status: Former smoker Past Alcohol Use History: Daily, Heavy Additional Past Alcohol Use History / Comment(s): Patient is a smoker of one pack per day since he was 16 years of age. He states he does not smoke marijuana on a regular basis. He denies any street drug use. He states he went through AA in the 1980s and also 2015. occasionally drinks 1-2 beers maybe twice a week Past Drug Use History: Marijuana - Past Family History Mother Additional Family Medical History / Comment(s): Mom is 80 years of age with no major medical problems of the patient is aware of. Father Family Medical History: Cancer, Chest Pain / Angina, Coronary Artery Disease ( CAD), Myocardial Infarction ([place]) Additional Family Medical History / Comment(s): Father is 80 years of age and has history of alcoholism and quit drinking 30 years ago. He has history of CABG. lung and colon cancer. father is still living Sister(s) Additional Family Medical History / Comment(s): Patient has 3 sisters and one has history of alcoholism. He has no brothers. Medications and Allergies Home Medications Medication Instructions Recorded Confirmed Type Acetaminophen-Codeine 300-30mg 1 tab PO Q8H PRN 11/23/16 11/23/16 History [Tylenol #3] Albuterol Inhaler [Ventolin Hfa 1 - 2 puff INHALATION RT-Q6H PRN 11/23/16 History Inhaler] Morphine Sulfate ER [Ms Contin 30 mg PO TID 11/23/16 11/23/16 History 30Mg] Multivitamins, Thera [Multivitamin] 1 tab PO DAILY 11/23/16 11/23/16 History Prochlorperazine [Compazine] 10 mg PO Q6H PRN 11/23/16 11/23/16 History Allergies Allergy/AdvReac Type Severity Reaction Status Date / Time No Known Allergies Allergy Verified 11/23/16 14:38 Surgical - Exam Vital Signs Temp Pulse Resp BP Pulse Ox 98.4 F 112 H 34 H 140/76 94 L 11/23/16 14:21 11/23/16 14:21 11/23/16 14:21 11/23/16 14:21 11/23/16 14:21 - General no distress, cachectic - Eyes normal ocular movement - Respiratory left: dullness - Cardiovascular Rhythm: regular - Abdomen Abdomen: soft, non tender - Neurologic normal coordination - Psychiatric oriented to time, oriented to person, oriented to place Results - Labs 11/25/16 05:29 11/25/16 05:29 Abnormal Lab Results - Last 24 Hours (Table) 11/25/16 11/25/16 Range/Units 05:29 05:29 WBC 18.2 H (3.8-10.6) k/uL RBC 3.91 L (4.30-5.90) m/uL Hgb 12.3 L (13.0-17.5) gm/dL Hct 37.4 L (39.0-53.0) % Plt Count 566 H (150-450) k/uL Neutrophils # 17.1 H (1.3-7.7) k/uL Lymphocytes # 0.4 L (1.0-4.8) k/uL Sodium 129 L (137-145) mmol/L Chloride 96 L (98-107) mmol/L Creatinine 0.51 L (0.66-1.25) mg/dL Glucose 129 H (74-99) mg/dL Calcium 8.1 L (8.4-10.2) mg/dL Alkaline Phosphatase 185 H (38-126) U/L Total Protein 5.2 L (6.3-8.2) g/dL Albumin 2.5 L (3.5-5.0) g/dL Microbiology - Last 24 Hours (Table) 11/24/16 12:00 Gram Stain - Preliminary Pleural Fluid Body Fluid Culture - Preliminary 11/23/16 17:35 Urine Culture - Final Urine,Voided 11/24/16 12:00 Anaerobic Culture - Preliminary Pleural Fluid Diabetes panel 11/25/16 Range/Units 05:29 Sodium 129 L (137-145) mmol/L Potassium 5.0 (3.5-5.1) mmol/L Chloride 96 L (98-107) mmol/L Carbon Dioxide 26 (22-30) mmol/L BUN 9 (9-20) mg/dL Creatinine 0.51 L (0.66-1.25) mg/dL Glucose 129 H (74-99) mg/dL Calcium 8.1 L (8.4-10.2) mg/dL AST 57 (17-59) U/L ALT 38 (21-72) U/L Alkaline Phosphatase 185 H (38-126) U/L Total Protein 5.2 L (6.3-8.2) g/dL Albumin 2.5 L (3.5-5.0) g/dL Calcium panel 11/25/16 Range/Units 05:29 Calcium 8.1 L (8.4-10.2) mg/dL Albumin 2.5 L (3.5-5.0) g/dL Pituitary panel 11/25/16 Range/Units 05:29 Sodium 129 L (137-145) mmol/L Potassium 5.0 (3.5-5.1) mmol/L Chloride 96 L (98-107) mmol/L Carbon Dioxide 26 (22-30) mmol/L BUN 9 (9-20) mg/dL Creatinine 0.51 L (0.66-1.25) mg/dL Glucose 129 H (74-99) mg/dL Calcium 8.1 L (8.4-10.2) mg/dL Adrenal panel 11/25/16 Range/Units 05:29 Sodium 129 L (137-145) mmol/L Potassium 5.0 (3.5-5.1) mmol/L Chloride 96 L (98-107) mmol/L Carbon Dioxide 26 (22-30) mmol/L BUN 9 (9-20) mg/dL Creatinine 0.51 L (0.66-1.25) mg/dL Glucose 129 H (74-99) mg/dL Calcium 8.1 L (8.4-10.2) mg/dL Total Bilirubin 0.3 (0.2-1.3) mg/dL AST 57 (17-59) U/L ALT 38 (21-72) U/L Alkaline Phosphatase 185 H (38-126) U/L Total Protein 5.2 L (6.3-8.2) g/dL Albumin 2.5 L (3.5-5.0) g/dL - Imaging Chest x-ray: report reviewed, image reviewed CT scan - chest: report reviewed, image reviewed Assessment and Plan (1) Pleural effusion Status: Acute Plan: The patient's recent imaging studies were personally reviewed. He had a large left pleural effusion which was drained via thoracentesis yesterday. Cultures are thus far negative. There are no cytology results yet. He does have an elevated white blood cell count for which he is on antibiotics. He was scheduled to begin chemotherapy soon but this may be delayed given his leukocytosis. I do agree that he would benefit from a left-sided Pleurx catheter. We will obtain a chest x-ray tomorrow to determine how much of the pleural fluid has reaccumulated. He will likely undergo the procedure later this week. In the meantime we will await return of his cytology testing. Time with Patient: Greater than 30
[2016-11-25] MEDS: LEVOFLOXACIN 750MG-D5W PMX 750 MG in DEXTROSE/WATER 1 150ML.BAG IVPB SCH (17:23)
[2016-11-26] MEDS: HYDROmorphone 1 MG/ML 1 ML SYRINGE IVP PRN ×2 (03:08→14:19)
[2016-11-26] MEDS: VANCOMYCIN 1,250 MG in SODIUM CHLORIDE 0.9% 250 ML IVPB SCH ×3 (06:08→21:54)
[2016-11-26 07:42] LABS: Basophils % (A) 0 %; CH 32.3; CHCM 34.4; Eosinophils % (A) 0 %; HCT 36.3 % (39.0-53.0); HDW 2.66; HGB 12.2 gm/dL (13.0-17.5); Luc % (Auto) 1; Lymphocytes # (A) 0.4 k/uL (1.0-4.8); Lymphocytes % (A) 2 %; MCH 31.8 pg (25.0-35.0); MCHC 33.7 g/dL (31.0-37.0); MCV 94.2 fL (80.0-100.0); Mean Platelet Volume 7.1; Monocytes # (A) 0.8 k/uL (0-1.0); Monocytes % (A) 4 %; Neutrophils # (A) 16.6 k/uL (1.3-7.7); Neutrophils % (A) 92 %; RBC 3.85 m/uL (4.30-5.90); RDW 12.1 % (11.5-15.5); WBC (Perox) 18.97
[2016-11-26] MEDS: PANTOPRAZOLE 40 MG TABLET PO SCH (07:42)
[2016-11-26] MEDS: DEXAMETHASONE SOD PHOSPHATE 4 MG/ML 1 ML VIAL IM SCH ×3 (07:42→23:59)
[2016-11-26] MEDS: HEPARIN SODIUM,PORCINE 5,000 UNIT/ML 1 ML VIAL SQ SCH ×2 (07:43→21:54)
[2016-11-26] MEDS: MORPHINE SULFATE ER 15 MG TABLET PO SCH ×2 (07:44→21:53)
--- NOTE | 2016-11-26 07:54 | PN ---
DATE OF SERVICE: 11/25/2016 This is a 56-year-old gentleman who was admitted with shortness of breath, possibly multifactorial including COPD as well as left-sided pleural effusion, had a thoracocentesis. Patient also had a possible pneumonia also. Patient had recently diagnosed non-small cell cancer and Dr. Hart and also Dr. Montgomery is follow the patient closely. A Pleurx drainage catheter has been planted. WBC is elevated. The patient is on broad spectrum IV antibiotics. PAST MEDICAL HISTORY: Reviewed. REVIEW OF SYSTEMS: CARDIOVASCULAR: No angina, no palpitations. RESPIRATORY: As mentioned earlier. GI: No nausea. : No dysuria. NERVOUS SYSTEM: No numbness or weakness. Current medications are reviewed and include: 1. Tylenol 500 mg q.6 p.r.n. 2. [place] 5 mg q.6 p.r.n. 3. DuoNeb q.i.d. and p.r.n. 4. Xanax 0.5 b.i.d. 5. Symbicort 160/4.5 two puffs b.i.d. 6. Decadron 4 mg q.8. 7. Heparin 5000 subQ b.i.d. 8. Dilaudid. 9. Levaquin 750 daily. 10. MS Contin 15 mg b.i.d. 11. Protonix. 12. Restoril. 13. Vancomycin IV. PHYSICAL EXAM: Patient is alert and oriented x3. Pulse 108, blood pressure 130/70, respirations 16, temperature is 97 degrees, pulse ox 91% on 3 L. HEENT: Conjunctivae normal, oral mucosa moist. Neck is no jugular venous distention. No carotid bruit, no lymph node enlargement. CARDIOVASCULAR SYSTEM: S1, S2, muffled. Cardiac ( ) normal. RESPIRATORY: Breath sounds diminished at the bases, bilateral scattered rhonchi, no crackles. Abdomen is soft and nontender. No mass palpable. EXTREMITIES: Legs no edema, no swelling. NERVOUS SYSTEM: Higher functions as mentioned, moves all 4 limbs, no focal deficits. LYMPHATICS: No lymph node enlargement in the neck, axillae or groin. SKIN: No ulcer, rash or bleeding. LABS: WBC is 18.2, hemoglobin is 12.3, sodium 129. ASSESSMENT: 1. Shortness of breath possibly multifactorial with possible left-sided pleural effusion, postobstructive pneumonia as well as lung malignancy. 2. Status post thoracocentesis of the 2.2 L of serosanguineous fluid from the left chest wall. 3. Recently diagnosed non-small lung cancer with lymphadenopathy, possibly stage IV, status post cervical lymph node biopsy. 4. Bilateral pneumonia, possibly gram-negative, possibly postobstructive with possible sepsis, present on admission. 5. Increased lactic acid present on admission, improved. 6. Increased WBC. 7. Hypoalbuminemia with mild to moderate protein calorie malnutrition. 8. Hyponatremia, hypovolemia. 9. History of hyperlipidemia. 10. History of hemorrhoids. 11. History of depression. 12. Remote history of nicotine dependence. 13. FULL CODE. RECOMMENDATION: In this 56-year-old gentleman who presented with multiple complex medical issues, will monitor the patient closely. Continue with the current medications and symptomatic treatment. Will repeat labs. Otherwise, continue with antibiotics, bronchodilators. Closely, pain medications. Otherwise, we will follow the cultures which are negative so far. Follow close for possible Pleurx catheter insertion. Guarded prognosis. Further recommendations to follow.
[2016-11-26 08:06] LABS: ALT 45 U/L (21-72); AST 49 U/L (17-59); Alkaline Phosphatase 194 U/L (38-126); Anion Gap 6 mmol/L; Blood Urea Nitrogen 14 mg/dL (9-20); Carbon Dioxide 28 mmol/L (22-30); Chloride 94 mmol/L (98-107); Glucose 132 mg/dL (74-99); Non-African American GFR(MDRD) >60 (>60 ml/min/1.73 sqM); Potassium 4.8 mmol/L (3.5-5.1); Sodium 128 mmol/L (137-145); Total Bilirubin 0.3 mg/dL (0.2-1.3); Total Protein 5.3 g/dL (6.3-8.2)
[2016-11-26] MEDS: SYMBICORT 160-4.5 MCG INHALER INHALATION SCH ×2 (09:12→20:13)
--- NOTE | 2016-11-26 12:13 | XR ---
EXAMINATION TYPE: XR chest 2V DATE OF EXAM: 11/26/2016 8:03 AM COMPARISON: 11/24/2016 HISTORY: Shortness of breath TECHNIQUE: Frontal and lateral views of the chest are obtained. FINDINGS: Scattered senescent parenchymal changes noted. Hyperinflation compatible with COPD. Dense consolidation involving most of the left lung with exception of the left apical region. Underly ing effusion is suspected. There is also increasing infiltrate about the right perihilar region and r ight upper lobe. Heart size is stable. Mediastinal structures are stable with findings suspicious for underlying paratracheal adenopathy. No evidence for hilar prominence. Degenerative changes dorsal spine. IMPRESSION: 1. Dense consolidation involving most of the left lung with exception of the left apical region. Unde rlying effusion is suspected. There is also increasing infiltrate about the right perihilar region an d right upper lobe.
--- NOTE | 2016-11-26 13:52 | P.PN ---
Subjective Principal diagnosis: Dyspnea secondary to left pleural effusions secondary to small cell lung cancer This is a very pleasant 56-year-old gentleman with a known history of advanced small cell lung cancer and postobstructive pneumonitis and a large left pleural effusion. He had undergone a thoracentesis by Dr. Hart on 11/24/2016 and 2200 mL of serosanguineous fluid was removed. He did have a reaccumulation of the fluid and the plan is for a Pleurx catheter to be placed by cardiothoracic surgery tomorrow morning. Following that Dr. Meyer is planning to initiate chemotherapy. Presently, he is resting fairly comfortably in bed. He is comfortable at rest but is quite dyspneic on minimal exertion. He denies any worsening cough congestion chills or night sweats. He is maintaining good O2 saturations in the mid 90s on 4 L/m per nasal cannula. He is afebrile. He's been hemodynamically stable. Objective - Vital Signs Vital signs: Vital Signs Temp 97.6 F 11/26/16 07:00 Pulse 98 11/26/16 07:00 Resp 20 11/26/16 07:00 BP 128/83 11/26/16 07:00 Pulse Ox 94 L 11/26/16 09:13 Intake & Output 11/25/16 11/26/16 11/26/16 18:59 06:59 18:59 Intake Total 1570 2400 Balance 1570 2400 Weight 66 kg Intake: IV 500 800 .9NS @ 100/HR 500 800 Intake, IV Titration 250 400 Amount Levofloxacin 750Mg-D5w 150 Pmx 750 mg In Dextrose/ Water 1 150ml.bag @ 100 mls/hr IVPB Q24H [facility] Rx#: [id number] Vancomycin 1,250 mg In 250 250 Sodium Chloride 0.9% 250 ml @ 125 mls/hr IVPB Q8H [facility] Rx#:[id number] Oral 820 1200 Other: # Voids 2 2 3 - Exam GENERAL EXAM: Alert, active, comfortable in no apparent distress. Cachectic. HEAD: Normocephalic. EYES: Normal reaction of pupils, equal size. NOSE: Clear with pink turbinates. THROAT: No erythema or exudates. NECK: No masses, no JVD. CHEST: No chest wall deformity. LUNGS: Equal air entry with crackles in the left lung, diminished. CVS: S1 and S2 normal with no audible murmurs, regular rhythm. ABDOMEN: No hepatosplenomegaly, normal bowel sounds, no guarding or rigidity. SPINE: No scoliosis or deformity SKIN: No rashes CENTRAL NERVOUS SYSTEM: No focal deficits, tone is normal in all 4 extremities. Extremities: There is no peripheral edema, no clubbing no cyanosis. Peripheral pulses are intact. - Labs CBC & Chem 7: 11/26/16 07:15 11/26/16 07:15 Labs: Abnormal Lab Results - Last 24 Hours (Table) 11/26/16 11/26/16 Range/Units 07:15 07:15 WBC 18.0 H (3.8-10.6) k/uL RBC 3.85 L (4.30-5.90) m/uL Hgb 12.2 L (13.0-17.5) gm/dL Hct 36.3 L (39.0-53.0) % Plt Count 577 H (150-450) k/uL Neutrophils # 16.6 H (1.3-7.7) k/uL Lymphocytes # 0.4 L (1.0-4.8) k/uL Sodium 128 L (137-145) mmol/L Chloride 94 L (98-107) mmol/L Creatinine 0.53 L (0.66-1.25) mg/dL Glucose 132 H (74-99) mg/dL Calcium 8.0 L (8.4-10.2) mg/dL Alkaline Phosphatase 194 H (38-126) U/L Total Protein 5.3 L (6.3-8.2) g/dL Albumin 2.5 L (3.5-5.0) g/dL Microbiology - Last 24 Hours (Table) 11/24/16 12:00 Gram Stain - Preliminary Pleural Fluid Body Fluid Culture - Preliminary Assessment and Plan Plan: Impression: #1 Dyspnea, multifactorial in a patient found to have a large left pleural effusion, small cell lung cancer and postobstructive pneumonitis and probable underlying chronic obstructive pulmonary disease. Status post thoracentesis of 2200 mL removed. #2 Chronic and ongoing tobacco dependence. #3 History of alcoholism. #3 History of depression. #4 Hyperlipidemia. Plan: The patient was seen and evaluated by Dr. Sanchez. We'll continue with his current medications. The plan is for Pleurx catheter insertion tomorrow to be followed by hot chemotherapy once patient is discharged. In the interim we'll continue with his current medications. We'll continue to follow make further recommendations based on his clinical status.
--- NOTE | 2016-11-26 13:52 | P.PN ---
Subjective Principal diagnosis: Recurrent left pleural effusion, stage IV lung cancer. Postop day #2 left thoracentesis. Patient currently ambulating in room in no apparent distress. Denies pain. States shortness of breath is better after thoracentesis. Objective - Vital Signs Vital signs: Vital Signs Temp 97.6 F 11/26/16 07:00 Pulse 98 11/26/16 07:00 Resp 20 11/26/16 07:00 BP 128/83 11/26/16 07:00 Pulse Ox 94 L 11/26/16 07:00 Intake & Output 11/25/16 11/26/16 11/26/16 18:59 06:59 18:59 Intake Total 1570 2400 Balance 1570 2400 Weight 66 kg Intake: IV 500 800 .9NS @ 100/HR 500 800 Intake, IV Titration 250 400 Amount Levofloxacin 750Mg-D5w 150 Pmx 750 mg In Dextrose/ Water 1 150ml.bag @ 100 mls/hr IVPB Q24H [facility] Rx#: [id number] Vancomycin 1,250 mg In 250 250 Sodium Chloride 0.9% 250 ml @ 125 mls/hr IVPB Q8H [facility] Rx#:[id number] Oral 820 1200 Other: # Voids 2 2 3 - Constitutional General appearance: Present: cooperative, no acute distress - Respiratory Details: Lung sounds very diminished bilaterally. Respirations even and nonlabored. Currently on room air. - Cardiovascular Details: S1, S2 present. No murmurs rubs or gallops. Regular rate and rhythm. No edema present. Palpable radial, DP, PT pulses. - Gastrointestinal Gastrointestinal Comment(s): Abdomen soft, nontender, nondistended. Hypoactive bowel sounds 4 quadrants. - Genitourinary Genitourinary Comment(s): Voiding clear, yellow urine. - Integumentary Integumentary Comment(s): Skin warm, dry. - Neurologic Neurologic: Present: CNII-XII intact - Musculoskeletal Musculoskeletal Comment(s): Ambulating in room without difficulty. - Psychiatric Psychiatric: Present: A&O x's 3, appropriate affect, intact judgment & insight - Allied health notes Allied health notes reviewed: RT - Labs CBC & Chem 7: 11/26/16 07:15 11/26/16 07:15 Labs: Abnormal Lab Results - Last 24 Hours (Table) 11/26/16 11/26/16 Range/Units 07:15 07:15 WBC 18.0 H (3.8-10.6) k/uL RBC 3.85 L (4.30-5.90) m/uL Hgb 12.2 L (13.0-17.5) gm/dL Hct 36.3 L (39.0-53.0) % Plt Count 577 H (150-450) k/uL Neutrophils # 16.6 H (1.3-7.7) k/uL Lymphocytes # 0.4 L (1.0-4.8) k/uL Sodium 128 L (137-145) mmol/L Chloride 94 L (98-107) mmol/L Creatinine 0.53 L (0.66-1.25) mg/dL Glucose 132 H (74-99) mg/dL Calcium 8.0 L (8.4-10.2) mg/dL Alkaline Phosphatase 194 H (38-126) U/L Total Protein 5.3 L (6.3-8.2) g/dL Albumin 2.5 L (3.5-5.0) g/dL Microbiology - Last 24 Hours (Table) 11/24/16 12:00 Gram Stain - Preliminary Pleural Fluid Body Fluid Culture - Preliminary - Imaging and Cardiology Chest x-ray: image reviewed Assessment and Plan (1) Dyspnea Status: Acute (2) Pleural effusion Status: Acute (3) Pneumonia Status: Acute (4) Small cell carcinoma of left lung Status: Acute Plan: 1. Will place Pleurx catheter tomorrow. 2. Continue to monitor progress. 3. Aggressive pulmonary hygiene. 4. Appreciate pulmonary, oncology recommendations. 5. More recommendations as patient progresses. Time with Patient: Greater than 30
[2016-11-26] MEDS: LEVOFLOXACIN 750MG-D5W PMX 750 MG in DEXTROSE/WATER 1 150ML.BAG IVPB SCH (17:38)
--- NOTE | 2016-11-26 22:19 | P.PN ---
Subjective Principal diagnosis: Small cell lung cancer Objective - Vital Signs Vital signs: Vital Signs Temp 97.7 F 11/26/16 15:00 Pulse 97 11/26/16 15:00 Resp 20 11/26/16 15:00 BP 110/70 11/26/16 15:00 Pulse Ox 96 11/26/16 15:00 Intake & Output 11/26/16 11/26/16 11/27/16 06:59 18:59 06:59 Intake Total 2400 Balance 2400 Weight 66 kg Intake: IV 800 .9NS @ 100/HR 800 Intake, IV Titration 400 Amount Levofloxacin 750Mg-D5w 150 Pmx 750 mg In Dextrose/ Water 1 150ml.bag @ 100 mls/hr IVPB Q24H [facility] Rx#: [id number] Vancomycin 1,250 mg In 250 Sodium Chloride 0.9% 250 ml @ 125 mls/hr IVPB Q8H [facility] Rx#:[id number] Oral 1200 Other: # Voids 2 3 - Constitutional General appearance: Present: mild distress - EENT Eyes: Present: EOMI, PERRLA ENT: Present: hearing grossly normal, normal oropharynx - Neck Neck: Present: lymphadenopathy (L cervical) - Respiratory Respiratory: left: diminished - Cardiovascular Rhythm: regular Heart sounds: normal: S1, S2 - Gastrointestinal General gastrointestinal: Present: normal bowel sounds, soft - Integumentary Integumentary: Present: normal - Neurologic Neurologic: Present: CNII-XII intact - Musculoskeletal Musculoskeletal: Present: generalized weakness, strength equal bilaterally - Psychiatric Psychiatric: Present: A&O x's 3, appropriate affect - Labs CBC & Chem 7: 11/26/16 07:15 11/26/16 07:15 Labs: Abnormal Lab Results - Last 24 Hours (Table) 11/26/16 11/26/16 Range/Units 07:15 07:15 WBC 18.0 H (3.8-10.6) k/uL RBC 3.85 L (4.30-5.90) m/uL Hgb 12.2 L (13.0-17.5) gm/dL Hct 36.3 L (39.0-53.0) % Plt Count 577 H (150-450) k/uL Neutrophils # 16.6 H (1.3-7.7) k/uL Lymphocytes # 0.4 L (1.0-4.8) k/uL Sodium 128 L (137-145) mmol/L Chloride 94 L (98-107) mmol/L Creatinine 0.53 L (0.66-1.25) mg/dL Glucose 132 H (74-99) mg/dL Calcium 8.0 L (8.4-10.2) mg/dL Alkaline Phosphatase 194 H (38-126) U/L Total Protein 5.3 L (6.3-8.2) g/dL Albumin 2.5 L (3.5-5.0) g/dL Microbiology - Last 24 Hours (Table) 11/24/16 12:00 Gram Stain - Preliminary Pleural Fluid Body Fluid Culture - Preliminary 11/24/16 12:00 Anaerobic Culture - Preliminary Pleural Fluid Assessment and Plan (1) Dyspnea Narrative/Plan: This is significantly improved, with steroids, antibiotics and aerosols. However overall endurance is still poor. It is felt per Pulmonary that drainage of effusion will improve him further Status: Acute (2) Pleural effusion Narrative/Plan: Thoracentesis did lead to improvement in symptoms. However, CXR reveals recurrence. Thus it is felt that the pt will benefit from PleurX catheter placement. CTS has been consulted. Case extensively d/w Pulmonary service. The pt is to have placement tomorrow Status: Acute (3) Small cell carcinoma of left lung Narrative/Plan: He was supposed to start chemo today. Given the pt's improvement , and anticipated further improvement with the PleurX catheter placement, urgent inpt chemo is not indicated. The infusion center was called to postpone chemo. He will start as an outpt post discharge. Status: Acute
[2016-11-27] MEDS: HYDROmorphone 1 MG/ML 1 ML SYRINGE IVP PRN ×2 (00:02→13:16)
[2016-11-27] MEDS ORDERED: VANCOMYCIN TROUGH DUE 1 EACH MISC MISCELLANE ONE (05:00)
[2016-11-27 05:57] LABS: Basophils % (A) 0 %; CH 32.6; CHCM 34.1; Eosinophils % (A) 0 %; HCT 41.7 % (39.0-53.0); HDW 2.69; HGB 13.9 gm/dL (13.0-17.5); Luc # (Auto) 0.28; Luc % (Auto) 2; Lymphocytes # (A) 0.5 k/uL (1.0-4.8); Lymphocytes % (A) 3 %; MCH 31.9 pg (25.0-35.0); MCHC 33.3 g/dL (31.0-37.0); MCV 95.9 fL (80.0-100.0); Mean Platelet Volume 6.4; Monocytes # (A) 0.7 k/uL (0-1.0); Monocytes % (A) 4 %; Neutrophils # (A) 16.6 k/uL (1.3-7.7); Neutrophils % (A) 92 %; RBC 4.34 m/uL (4.30-5.90); RDW 12.3 % (11.5-15.5); WBC 18.1 k/uL (3.8-10.6); WBC (Perox) 18.76
[2016-11-27 06:13] LABS: ALT 54 U/L (21-72); AST 62 U/L (17-59); Alkaline Phosphatase 226 U/L (38-126); Anion Gap 8 mmol/L; Blood Urea Nitrogen 15 mg/dL (9-20); Calcium 8.5 mg/dL (8.4-10.2); Carbon Dioxide 32 mmol/L (22-30); Chloride 91 mmol/L (98-107); Glucose 128 mg/dL (74-99); Non-African American GFR(MDRD) >60 (>60 ml/min/1.73 sqM); Potassium 4.6 mmol/L (3.5-5.1); Sodium 131 mmol/L (137-145); Total Bilirubin 0.5 mg/dL (0.2-1.3); Total Protein 6.1 g/dL (6.3-8.2)
[2016-11-27] MEDS: VANCOMYCIN 1,250 MG in SODIUM CHLORIDE 0.9% 250 ML IVPB SCH (06:18)
[2016-11-27] MEDS: SYMBICORT 160-4.5 MCG INHALER INHALATION SCH ×2 (06:54→19:02)
--- NOTE | 2016-11-27 07:13 | PN ---
DATE OF SERVICE: 11/26/2016 This is a 56-year-old gentleman who was admitted with shortness of breath and a pleural effusion, had a thoracocentesis. Pleurx catheter has been planned at this time. No chest pain, no palpitation, no fever. The most recent chest x-ray done today showed some dense consolidation also. The patient complaining of some chest pain at this time. No fever. No cough. On exam, alert and oriented x3. Pulse 98, blood pressure 128/83, respirations 20, temperature 97.4, pulse ox 94% on 4 L. HEENT: Conjunctivae normal. NECK: No jugular venous distention. CARDIOVASCULAR SYSTEM: S1, S2, muffled. RESPIRATORY: Breath sounds diminished at the bases. A few scattered rhonchi, no crackles. Abdomen is soft, nontender. EXTREMITIES: Legs no edema. NERVOUS SYSTEM: No focal deficits. Labs are noted. ASSESSMENT: 1. Shortness of breath, possibly multifactorial with possible left-sided pleural effusion, postobstructive pneumonia as well as lung malignancy. 2. Status post thoracocentesis of the 2.2 L serosanguineous fluid from the left chest cavity. 3. Recently diagnosed non-small cell lung cancer with lymphadenopathy, possibly stage IV, status post cervical lymph node biopsy. 4. Bilateral pneumonia, possibly gram-negative, possibly postobstructive related to possible sepsis, present on admission. 5. Increased lactic acid present on admission, improved. 6. Increased WBC. 7. Hypoalbuminemia with mild to moderate protein calorie malnutrition. 8. Hyponatremia hypovolemia. 9. History of hyperlipidemia. 10. History of hemorrhoids. 11. History of depression. 12. Remote history of nicotine dependence. 13. FULL CODE. RECOMMENDATION: In this 56-year-old gentleman who presented with multiple complex medical issues, will monitor the patient closely, continue with the current medications, continue with the symptomatic treatment. Otherwise, at this time we will closely follow. Continue with the broad spectrum IV antibiotics. Closely follow with Dr. Sanchez, Pulmonary and as well as Cardiothoracic Surgery. Further recommendations to follow.
[2016-11-27] MEDS: PANTOPRAZOLE 40 MG TABLET PO SCH (07:28)
[2016-11-27] MEDS: DEXAMETHASONE SOD PHOSPHATE 4 MG/ML 1 ML VIAL IM SCH ×3 (07:48→23:45)
[2016-11-27] MEDS ORDERED: IV FLUID CONTINUATION 500 ML IV ONE (08:20)
[2016-11-27] MEDS ORDERED: MIDAZOLAM 2 MG/2 ML VIAL ONE (09:21)
[2016-11-27] MEDS ORDERED: fentaNYL (PF) 50 MCG/ML 2 ML AMP ONE (09:21)
[2016-11-27] MEDS ORDERED: PROPOFOL 10 MG/ML 20 ML VIAL IV ONE (09:21)
[2016-11-27] MEDS ORDERED: LIDOCAINE 1% INJ 10MG/ML (20 ML MDV) SQ ONE ×3 (09:44→09:53)
[2016-11-27] MEDS: HYDROmorphone 1 MG/ML 1 ML SYRINGE IVP ONE ×2 (10:30→10:36)
[2016-11-27] MEDS ORDERED: SODIUM CHLORIDE 0.9% 1,000 ML IV ONE (10:31)
[2016-11-27] MEDS ORDERED: ONDANSETRON 4 MG/2 ML VIAL IVP ONE (10:36)
[2016-11-27] MEDS ORDERED: HYDROmorphone 1 MG/ML 1 ML SYRINGE IVP ONE (10:43)
[2016-11-27] MEDS: MORPHINE SULFATE ER 15 MG TABLET PO SCH ×2 (11:10→20:01)
[2016-11-27] MEDS: HEPARIN SODIUM,PORCINE 5,000 UNIT/ML 1 ML VIAL SQ SCH ×2 (11:11→20:01)
--- NOTE | 2016-11-27 11:11 | XR ---
EXAMINATION TYPE: XR chest 1V portable DATE OF EXAM: 11/27/2016 10:53 AM Comparison: 11/26/2016 Clinical History: 56-year-old male pleural Catheter placement Findings: Left heart margin obscured by adjacent pleural parenchymal disease. The left pleural drain is looped within the left base. Interstitial and patchy airspace disease within the visualized left upper lung and also throughout the right lung unchanged from prior. Extensive opacity in the left hemithorax ext ends up to the upper lung level. Impression: Overall stable exam with a left sided pleural drain looped at the left base. Moderate to large left p leural effusion with bilateral patchy airspace disease.
--- NOTE | 2016-11-27 11:48 | P.PN ---
Subjective Principal diagnosis: Dyspnea secondary to left pleural effusions secondary to small cell lung cancer This is a very pleasant 56-year-old gentleman with a known history of advanced small cell lung cancer and postobstructive pneumonitis and a large left pleural effusion. He had undergone a thoracentesis by Dr. Hart on 11/24/2016 and 2200 mL of serosanguineous fluid was removed. He did have a reaccumulation of the fluid and subsequently had a Pleurx catheter placed this morning. There is already a significant amount of fluid returned. He is currently awake and alert in no acute distress. He denies any significant shortness of breath, cough or congestion. Objective - Vital Signs Vital signs: Vital Signs Temp 97.1 F L 11/27/16 11:32 Pulse 106 H 11/27/16 11:32 Resp 20 11/27/16 11:32 BP 128/86 11/27/16 11:32 Pulse Ox 94 L 11/27/16 11:32 Intake & Output 11/26/16 11/27/16 11/27/16 18:59 06:59 18:59 Intake Total 870 575 Output Total 510 Balance 870 65 Weight 66.5 kg Intake: IV 620 575 .9NS @ 20/HR 620 Intake, IV Titration 250 Amount Vancomycin 1,250 mg In 250 Sodium Chloride 0.9% 250 ml @ 125 mls/hr IVPB Q8H [facility] Rx#:[id number] Output: Pleural Fluid 500 Estimated Blood Loss 10 Other: Voiding Method Urinal Toilet Urinal # Voids 3 - Exam GENERAL EXAM: Alert, active, comfortable in no apparent distress. Cachectic. HEAD: Normocephalic. EYES: Normal reaction of pupils, equal size. NOSE: Clear with pink turbinates. THROAT: No erythema or exudates. NECK: No masses, no JVD. CHEST: No chest wall deformity. There is a new Pleurx catheter secured to the left chest wall. LUNGS: Equal air entry with crackles in the left lung, diminished. CVS: S1 and S2 normal with no audible murmurs, regular rhythm. ABDOMEN: No hepatosplenomegaly, normal bowel sounds, no guarding or rigidity. SPINE: No scoliosis or deformity SKIN: No rashes CENTRAL NERVOUS SYSTEM: No focal deficits, tone is normal in all 4 extremities. Extremities: There is no peripheral edema, no clubbing no cyanosis. Peripheral pulses are intact. - Labs CBC & Chem 7: 11/27/16 05:47 11/27/16 05:47 Labs: Abnormal Lab Results - Last 24 Hours (Table) 11/27/16 11/27/16 Range/Units 05:47 05:47 WBC 18.1 H (3.8-10.6) k/uL Plt Count 665 H (150-450) k/uL Neutrophils # 16.6 H (1.3-7.7) k/uL Lymphocytes # 0.5 L (1.0-4.8) k/uL Sodium 131 L (137-145) mmol/L Chloride 91 L (98-107) mmol/L Carbon Dioxide 32 H (22-30) mmol/L Creatinine 0.57 L (0.66-1.25) mg/dL Glucose 128 H (74-99) mg/dL AST 62 H (17-59) U/L Alkaline Phosphatase 226 H (38-126) U/L Total Protein 6.1 L (6.3-8.2) g/dL Albumin 3.0 L (3.5-5.0) g/dL Microbiology - Last 24 Hours (Table) 11/24/16 12:00 Gram Stain - Preliminary Pleural Fluid Body Fluid Culture - Preliminary 11/24/16 12:00 Anaerobic Culture - Preliminary Pleural Fluid Assessment and Plan Plan: Impression: #1 Dyspnea, multifactorial in a patient found to have a large left pleural effusion, small cell lung cancer and postobstructive pneumonitis and probable underlying chronic obstructive pulmonary disease. Status post thoracentesis of 2200 mL removed. Now status post left-sided Pleurx catheter insertion currently training to Pleur-evac. #2 Chronic and ongoing tobacco dependence. #3 History of alcoholism. #3 History of depression. #4 Hyperlipidemia. Plan: The patient was seen and evaluated by Dr. Sanchez. His post-Pleurx catheter chest tube was reviewed. The tube is draining significant amount of serosanguineous drainage. The plan is for subsequent discharge and the initiation of chemotherapy possibly as early as today. We'll follow-up with him in the outpatient setting in our office.
[2016-11-27] MEDS: HYDROcodone/APAP 5-325MG 1 EACH TAB PO PRN (13:01)
[2016-11-27] MEDS: VANCOMYCIN 1,500 MG in SODIUM CHLORIDE 0.9% 250 ML IVPB SCH ×2 (14:10→21:20)
[2016-11-27] MEDS: LEVOFLOXACIN 750MG-D5W PMX 750 MG in DEXTROSE/WATER 1 150ML.BAG IVPB SCH (16:05)
--- NOTE | 2016-11-27 16:28 | FL ---
Fluoroscopy HISTORY: Pain 28 seconds fluoroscopy time supplied to the referring clinician. 1 intraoperative C-arm images docum ent the procedure. See dictated report from cardiothoracic surgery.
--- NOTE | 2016-11-27 19:29 | PN ---
DATE OF SERVICE: 11/27/2016 This 56-year-old gentleman who was admitted with shortness of breath, possible left-sided pleural effusion. The patient also postobstructive pneumonia as well as lung. Patient has got significant shortness of breath. Patient had chest tube drainage today and PleurX catheter drainage is planned. Dr. Sanchez is following the patient closely. PAST MEDICAL HISTORY: Reviewed. REVIEW OF SYSTEMS: CARDIOVASCULAR: No angina. RESPIRATORY: As mentioned earlier. GI: As mentioned earlier. : No dysuria. NERVOUS SYSTEM: No numbness or weakness. Current medications are reviewed and include: 1. Tylenol 500 mg q.6 p.r.n. 2. [place] 5 mg q.6 p.r.n. 3. No Maalox. 4. DuoNeb q.i.d. and p.r.n. 5. Xanax 0.5 t.i.d. 6. Symbicort 160/4.5, 2 puffs b.i.d. 7. Decadron 4 mg q.8 p.r.n. 8. Heparin 5000 subcu b.i.d. 9. Dilaudid 0.5 mg q.4. 10. Levaquin 750 q.24 hours. 11. MS Contin 50 mg p.o. b.i.d. 12. Protonix 40 mg daily. 13. Restoril 50 mg q.h.s. 14. Vancomycin 1.5 q.8 p.r.n. PHYSICAL EXAMINATION: Patient is alert and oriented x3. Pulse 106, blood pressure 120/86, respirations 20, temperature 97.1, pulse ox 94% on 4-L. HEENT: Conjunctivae normal. NECK: No jugular venous distention. CARDIOVASCULAR: S1 and S2, muffled. RESPIRATORY: Breath sounds diminished at the bases. Bilateral scattered rhonchi and crackles. ABDOMEN: Soft, nontender. No mass palpable. LEGS: No edema, no swelling. NERVOUS SYSTEM: Higher function as mentioned. Moves all four limbs. No focal motor deficits. LYMPHATIC: No lymphadenopathy in the neck, axillae or groin. SKIN: No ulcer, rash or bleeding. Left-sided chest tube present. LABS: WBC 18, hemoglobin 8, sodium 131. Chest x-ray revealed diffuse infiltrates bilaterally, left more than the right. Left pleural effusion also present. ASSESSMENT: 1. Shortness of breath, multifactorial, possible left-sided pleural effusion, postobstructive pneumonia as well as lung malignancy. 2. Status post thoracocentesis with 2.2 liters serosanguineous fluid from the left chest cavity per Dr. Hart. 3. Insertion of left chest tube, planned for PleurX catheter. 4. Recently diagnosed non-small cell lung cancer with lymphadenopathy, possibly stage IV, status post cervical lymph node biopsy. 5. Bilateral pneumonia, possibly gram-negative, possibly postobstructive with possible sepsis, present on admission. 6. Increased lactic acid, present on admission, related to sepsis, improved. 7. Increased WBC. 8. Hypoalbuminemia with mild to moderate protein calorie malnutrition. 9. Hyponatremia hypovolemia. 10. History of hyperlipidemia. 11. History of hemorrhoids. 12. History of depression. 13. Remote history of nicotine dependence. 14. FULL CODE. RECOMMENDATIONS AND DISCUSSION: In this 56-year-old gentleman who presented with multiple complex medical issues. Will monitor the patient closely. Continue the current medications, continue symptomatic treatment. Continue the broad-spectrum IV antibiotics and also continue with the bronchodilators at this time. Otherwise, patient is also on vancomycin. The cultures are negative. Continue with the pleural drainage. Please note that chest x-ray has got significant features this morning with overall significantly guarded prognosis. See orders for details. Further recommendations to follow. MTDD
--- NOTE | 2016-11-27 22:18 | OP ---
DATE OF SERVICE: 11/27/2016 SURGEON: Redd Motngomery MD [employer]: None. PREOPERATIVE DIAGNOSIS: Recurrent pleural effusion. POSTOPERATIVE DIAGNOSIS: Recurrent pleural effusion. OPERATION: Placement of left PleurX catheter under fluoroscopic guidance. ANESTHESIA: IV sedation with local anesthetic. ESTIMATED BLOOD LOSS: SPECIMENS REMOVED: None. COMPLICATIONS: None. INDICATION: The patient is a 56-year-old male with a long history of tobacco use who was recently diagnosed with small-cell lung cancer. Upon admission to the hospital he was noted to have a large left pleural effusion. Thoracentesis was performed with removal of 2200 mL of serosanguineous fluid. The patient is scheduled to begin chemotherapy per Oncology. Follow-up imaging studies have revealed recurrence of this left pleural effusion. Placement of a PleurX catheter was recommended. The risks, benefits and alternatives to this procedure were discussed with the patient. All questions were answered. Consent was obtained. FINDINGS: There was approximately 1000 mL of serosanguineous fluid drained from the chest. PROCEDURE IN DETAIL: The patient was taken to the operating room and placed supine on the operating table. IV sedation was administered. The left chest and flank were prepped and draped in the usual sterile fashion. Local anesthetic was infiltrated. Using a finder needle, pleural fluid was aspirated from the left chest. A guidewire was inserted under fluoroscopic guidance. A counter incision was created and the remainder of the tract was infiltrated with additional local anesthetic. The PleurX catheter was then tunneled between the 2 incisions. A dilator and breakaway sheath were advanced over the guidewire under fluoroscopic guidance using standard Seldinger technique. The catheter was then introduced through the breakaway sheath and advanced easily. Final fluoroscopic imaging revealed good placement of the catheter without evidence of obvious pneumothorax. Approximately 1000 mL of serosanguineous fluid was drained. The catheter was then attached to a ( ). A suture was placed to secure the catheter and the counter incision was closed as well. Sterile dressings were applied. The patient appeared to tolerated the procedure well. There were no immediate complications. He returned to the recovery room in stable condition.
[2016-11-27] MEDS: ALPRAZolam 0.25 MG TAB PO PRN (22:43)
[2016-11-28] MEDS: HYDROmorphone 1 MG/ML 1 ML SYRINGE IVP PRN ×2 (03:25→19:39)
[2016-11-28] MEDS: MAG HYDROX/AL HYDROX/SIMETH 30 ML CUP PO PRN ×2 (03:27→22:40)
[2016-11-28] MEDS: VANCOMYCIN 1,500 MG in SODIUM CHLORIDE 0.9% 250 ML IVPB SCH ×3 (06:22→21:51)
[2016-11-28 07:50] LABS: Basophils # (A) 0.1 k/uL (0-0.2); Basophils % (A) 1 %; CH 32.5; CHCM 34.2; Eosinophils % (A) 0 %; HCT 40.9 % (39.0-53.0); HDW 2.71; HGB 13.5 gm/dL (13.0-17.5); Luc # (Auto) 0.29; Luc % (Auto) 2; Lymphocytes # (A) 0.6 k/uL (1.0-4.8); Lymphocytes % (A) 3 %; MCH 31.5 pg (25.0-35.0); MCHC 33.1 g/dL (31.0-37.0); MCV 95.3 fL (80.0-100.0); Monocytes # (A) 1.1 k/uL (0-1.0); Monocytes % (A) 6 %; Neutrophils # (A) 15.3 k/uL (1.3-7.7); Neutrophils % (A) 88 %; RBC 4.29 m/uL (4.30-5.90); RDW 12.2 % (11.5-15.5); WBC 17.4 k/uL (3.8-10.6)
[2016-11-28 08:11] LABS: ALT 60 U/L (21-72); AST 71 U/L (17-59); Alkaline Phosphatase 208 U/L (38-126); Anion Gap 8 mmol/L; Blood Urea Nitrogen 15 mg/dL (9-20); Calcium 8.5 mg/dL (8.4-10.2); Carbon Dioxide 33 mmol/L (22-30); Chloride 87 mmol/L (98-107); Glucose 104 mg/dL (74-99); Non-African American GFR(MDRD) >60 (>60 ml/min/1.73 sqM); Sodium 128 mmol/L (137-145); Total Bilirubin 0.5 mg/dL (0.2-1.3); Total Protein 5.9 g/dL (6.3-8.2)
[2016-11-28] MEDS: HEPARIN SODIUM,PORCINE 5,000 UNIT/ML 1 ML VIAL SQ SCH ×2 (08:32→21:51)
[2016-11-28] MEDS: PANTOPRAZOLE 40 MG TABLET PO SCH (08:32)
[2016-11-28] MEDS: MORPHINE SULFATE ER 15 MG TABLET PO SCH ×2 (08:32→21:50)
[2016-11-28] MEDS: DEXAMETHASONE SOD PHOSPHATE 4 MG/ML 1 ML VIAL IM SCH ×2 (08:33→17:20)
--- NOTE | 2016-11-28 09:24 | XR ---
EXAMINATION TYPE: XR chest 2V DATE OF EXAM: 11/28/2016 7:23 AM COMPARISON: Prior chest x-ray 27 November 2016 HISTORY: Pleural catheter placement TECHNIQUE: Frontal and lateral views of the chest are obtained. FINDINGS: Opacity within left hemithorax persists, Pleurx catheter present at the left lower hemitho rax. No evident pneumothorax. Interstitium is prominent on the right. Heart size is obscured. IMPRESSION: Essentially stable exam.
[2016-11-28] MEDS: SYMBICORT 160-4.5 MCG INHALER INHALATION SCH ×2 (09:59→20:08)
--- NOTE | 2016-11-28 11:02 | P.PN ---
Subjective Progress note dated 11/28/2016 The patient had his Pleurx catheter placed on the left side yesterday November 27. Doing relatively well. He does have a pleuritic starter kit and all the information regarding the catheter. He seemed be doing relatively well. Less short of breath or ready. Chest x-ray from today is reviewed. Anyway the patient is improved as I mentioned above. No other complaints. Objective - Vital Signs Vital signs: Vital Signs Temp 97.1 F L 11/28/16 07:00 Pulse 102 H 11/28/16 08:00 Resp 20 11/28/16 07:00 BP 109/76 11/28/16 07:00 Pulse Ox 97 11/28/16 07:00 Intake & Output 11/27/16 11/28/16 11/28/16 18:59 06:59 18:59 Intake Total 825 560 Output Total 510 20 0 Balance 315 540 0 Weight 65.5 kg Intake: IV 575 60 ns@10 60 Intake, IV Titration 250 500 Amount Vancomycin 1,500 mg In 250 500 Sodium Chloride 0.9% 250 ml @ 125 mls/hr IVPB Q8H [facility] Rx#:[id number] Output: Chest Tube Drainage 20 Pleural Catheter Left 20 Lateral Chest Drainage 0 0 Left Lateral Chest 0 0 Pleural Fluid 500 Estimated Blood Loss 10 Other: Voiding Method Toilet Toilet Urinal Urinal # Voids 2 - Exam No acute distress, oriented 3. HEENT examination is grossly unremarkable. Mucous membranes are moist. No oral lesion. Neck supple. Full range of motion. No adenopathy. Cardiovascular examination reveals regular rhythm rate. Lungs reveal diminished breath sounds on the left. No wheezes or rhonchi. No crackles. Abdomen soft bowel sounds are heard. Extremities are intact. Bandage is noted over the left sided Pleurx catheter. - Labs CBC & Chem 7: 11/28/16 07:25 11/28/16 07:25 Labs: Abnormal Lab Results - Last 24 Hours (Table) 11/28/16 11/28/16 Range/Units 07:25 07:25 WBC 17.4 H (3.8-10.6) k/uL RBC 4.29 L (4.30-5.90) m/uL Plt Count 614 H (150-450) k/uL Neutrophils # 15.3 H (1.3-7.7) k/uL Lymphocytes # 0.6 L (1.0-4.8) k/uL Monocytes # 1.1 H (0-1.0) k/uL Sodium 128 L (137-145) mmol/L Chloride 87 L (98-107) mmol/L Carbon Dioxide 33 H (22-30) mmol/L Creatinine 0.54 L (0.66-1.25) mg/dL Glucose 104 H (74-99) mg/dL AST 71 H (17-59) U/L Alkaline Phosphatase 208 H (38-126) U/L Total Protein 5.9 L (6.3-8.2) g/dL Albumin 2.8 L (3.5-5.0) g/dL Microbiology - Last 24 Hours (Table) 11/24/16 12:00 Gram Stain - Preliminary Pleural Fluid Body Fluid Culture - Preliminary Assessment and Plan (1) Dyspnea Status: Acute (2) Lung mass Status: Acute (3) Pleural effusion Status: Acute (4) Small cell carcinoma of left lung Status: Acute (5) Chest pain Status: Acute Plan: Plan dated 11/28/2016 The patient continues to show improvement. We'll continue to follow. The patient has a Pleurx catheter started at the bedside. We'll continue to follow. Chest x-ray from today as well as labs are reviewed. He has reasonable pain control. Does not appear to be short of breath and a significant amount. Time with Patient: Less than 30
--- NOTE | 2016-11-28 12:26 | P.PN ---
Progress Note - Text Thoracic Surgery Nursing POD: #1, insertion of Pleurx catheter Patient awake and alert, no distress noted, no specific complaints. Vital Signs: Afebrile Vital Signs - 24 hr 11/27/16 11/27/16 11/27/16 15:00 16:00 23:00 Temperature 97 F L 97.1 F L Pulse Rate Pulse Rate [ 97 109 H Pulse Oximetery ] Respiratory 22 18 20 Rate Blood Pressure 114/81 122/81 [Right Arm] O2 Sat by Pulse 98 97 Oximetry 11/28/16 11/28/16 11/28/16 07:00 08:00 11:04 Temperature 97.1 F L Pulse Rate 100 Pulse Rate [ 102 H 102 H Pulse Oximetery ] Respiratory 20 Rate Blood Pressure 109/76 [Right Arm] O2 Sat by Pulse 97 93 L Oximetry 11/28/16 11:06 Temperature Pulse Rate 102 H Pulse Rate [ Pulse Oximetery ] Respiratory Rate Blood Pressure [Right Arm] O2 Sat by Pulse 92 L Oximetry Labs: Short CBC 11/28/16 Range/Units 07:25 WBC 17.4 H (3.8-10.6) k/uL Hgb 13.5 (13.0-17.5) gm/dL Hct 40.9 (39.0-53.0) % Plt Count 614 H (150-450) k/uL Neutrophils # 15.3 H (1.3-7.7) k/uL BMP 11/28/16 07:25 Sodium 128 L Potassium 5.0 Chloride 87 L Carbon Dioxide 33 H BUN 15 Creatinine 0.54 L Glucose 104 H Calcium 8.5 Liver Function 11/28/16 Range/Units 07:25 Total Bilirubin 0.5 (0.2-1.3) mg/dL AST 71 H (17-59) U/L ALT 60 (21-72) U/L Alkaline Phosphatase 208 H (38-126) U/L Albumin 2.8 L (3.5-5.0) g/dL Lungs: Respirations are even and nonlabored, breath sounds diminished on the left O2 sat: 92% on 2 L of oxygen delivered via nasal cannula Intake & Output 11/26/16 11/27/16 11/28/16 11/29/16 06:59 06:59 06:59 06:59 Intake Total 3970 870 1385 Output Total 530 0 Balance 3970 870 855 0 Weight 66 kg 66.5 kg 65.5 kg Pleurx catheter without significant drainage since surgery. Plan: Stable for discharge from thoracic surgery standpoint. Nurse to do Pleurx catheter education. ok to cap tube
[2016-11-28] MEDS ORDERED: RX INFO: IV CONTRAST WAS GIVEN 1 EACH MISC MISCELLANE PRN (12:32)
[2016-11-28] MEDS: LEVOFLOXACIN 750 MG TAB PO SCH (15:00)
--- NOTE | 2016-11-28 15:22 | CT ---
EXAMINATION TYPE: CT chest angio for PE DATE OF EXAM: 11/28/2016 2:47 PM COMPARISON: Prior CTA chest November HISTORY: Patient complains of difficulty breathing, chest tube, and known history of lung CA. CT DLP: 578 mGycm Automated exposure control for dose reduction was used. Helical imaging performed, three-dimensional reconstructions were performed. CONTRAST: CT Chest for pulmonary embolism performed with with IV Contrast, patient injected with 100 mL of Omni paque 350. FINDINGS: LUNGS: Extensive abnormal density is present within the lungs compatible with lung carcinoma, interst itial spread of carcinoma, metastatic disease. MEDIASTINUM: Extensive mediastinal adenopathy with soft tissue encasement is present within the media stinum due to adenopathy, abnormal soft tissue encases the pulmonary artery on the left, segmental br anches, there is a left-sided Pleurx catheter noted incidentally, soft tissue also causes mass effect on the pulmonary artery on the right due to hilar adenopathy, underlying emphysematous changes are p resent and noted incidentally AORTA: No additional significant abnormality is seen. OTHER: Liver metastasis are diffuse, again noted as on previous exam IMPRESSION: Metastatic disease. Pulmonary embolism is not evident.
[2016-11-28] MEDS: METOPROLOL TARTRATE 12.5 MG TAB PO SCH (21:51)
[2016-11-29] MEDS: ALPRAZolam 0.25 MG TAB PO PRN (00:29)
[2016-11-29] MEDS: HYDROmorphone 1 MG/ML 1 ML SYRINGE IVP PRN ×3 (00:47→22:32)
[2016-11-29] MEDS ORDERED: VANCOMYCIN TROUGH DUE 1 EACH MISC MISCELLANE ONE (05:30)
[2016-11-29 05:47] LABS: Basophils % (A) 0 %; CH 32.6; CHCM 34.2; Eosinophils # (A) 0.1 k/uL (0-0.7); Eosinophils % (A) 1 %; HCT 38.2 % (39.0-53.0); HDW 2.63; HGB 12.6 gm/dL (13.0-17.5); Luc # (Auto) 0.37; Luc % (Auto) 3; Lymphocytes # (A) 0.8 k/uL (1.0-4.8); Lymphocytes % (A) 6 %; MCH 31.6 pg (25.0-35.0); MCV 95.7 fL (80.0-100.0); Mean Platelet Volume 6.2; Monocytes # (A) 0.9 k/uL (0-1.0); Monocytes % (A) 6 %; Neutrophils # (A) 12.2 k/uL (1.3-7.7); Neutrophils % (A) 85 %; RBC 3.99 m/uL (4.30-5.90); RDW 12.3 % (11.5-15.5); WBC 14.4 k/uL (3.8-10.6); WBC (Perox) 16.06
[2016-11-29] MEDS: VANCOMYCIN 1,500 MG in SODIUM CHLORIDE 0.9% 250 ML IVPB SCH (06:05)
[2016-11-29 06:29] LABS: ALT 58 U/L (21-72); AST 73 U/L (17-59); Alkaline Phosphatase 189 U/L (38-126); Anion Gap 6 mmol/L; Blood Urea Nitrogen 21 mg/dL (9-20); Calcium 8.4 mg/dL (8.4-10.2); Carbon Dioxide 32 mmol/L (22-30); Chloride 90 mmol/L (98-107); Glucose 105 mg/dL (74-99); Non-African American GFR(MDRD) >60 (>60 ml/min/1.73 sqM); Potassium 4.6 mmol/L (3.5-5.1); Sodium 128 mmol/L (137-145); Total Bilirubin 0.3 mg/dL (0.2-1.3); Total Protein 5.3 g/dL (6.3-8.2)
[2016-11-29 06:36] LABS: Troponin I <0.012 ng/mL (0.000-0.034)
[2016-11-29 06:43] LABS: Creatine Kinase MB 3.2 ng/mL (0.0-2.4)
[2016-11-29] MEDS: HEPARIN SODIUM,PORCINE 5,000 UNIT/ML 1 ML VIAL SQ SCH ×2 (07:49→20:32)
[2016-11-29] MEDS: PANTOPRAZOLE 40 MG TABLET PO SCH (07:49)
[2016-11-29] MEDS: METOPROLOL TARTRATE 12.5 MG TAB PO SCH (07:50)
[2016-11-29] MEDS: predniSONE 20 MG TAB PO SCH (07:50)
[2016-11-29] MEDS: MORPHINE SULFATE ER 15 MG TABLET PO SCH ×2 (07:53→20:31)
[2016-11-29] MEDS: SYMBICORT 160-4.5 MCG INHALER INHALATION SCH ×2 (07:58→21:56)
--- NOTE | 2016-11-29 08:02 | XR ---
EXAMINATION TYPE: XR chest 2V DATE OF EXAM: 11/29/2016 7:22 AM COMPARISON: 11/28/2016 INDICATION: TECHNIQUE: Frontal and lateral views of the chest are obtained. FINDINGS: Heart size is indistinct. There is a moderate to large left pleural effusion. Catheter is curled in t he left lung base. Slight increased lung markings are through the right perihilar region. Slightly in creased from comparison IMPRESSION: 1. Moderate to large left pleural effusion increasing. 2. Catheter curled left lung base. 3. Increasing pulmonary vascular markings in the right perihilar region.
--- NOTE | 2016-11-29 08:35 | DS ---
This is progress note. DATE OF ADMISSION: 11/23/2016 DATE OF DISCHARGE: Patient came in with shortness of breath, left-sided pleural effusion, parapneumonic effusion, postobstructive pneumonia and COPD exacerbation and patient is admitted with acute hypercapnic respiratory failure. Patient was evaluated by Pulmonology and patient has a Pleurx catheter that was placed here and patient is cleared for discharge. Patient remained tachycardic, because of which I will obtain a CT of the chest with contrast before I discharge him and patient is requiring oxygen at this point of time and I will make sure patient does not have PE before his discharge. If patient continues to be tachycardic, patient will be discharged on metoprolol 12.5 if PE is negative. I obtained a TSH which was negative. Patient was seen and examined on the day of discharge. Vitals are stable. PHYSICAL EXAMINATION: GENERAL: The patient is alert and oriented x3, not in any acute distress. Well developed, well nourished. HEENT: Pupils are round and equally reacting to light. EOMI. No scleral icterus. No conjunctival pallor. Normocephalic, atraumatic. No pharyngeal erythema. No thyromegaly. CARDIOVASCULAR: Tachycardia. PULMONARY: Chest is clear to auscultation, no wheezing or crackles. ABDOMEN: Soft, nontender, nondistended, normoactive bowel sounds. No palpable organomegaly. MUSCULOSKELETAL: No joint swelling or deformity. EXTREMITIES: No cyanosis, clubbing, or pedal edema. NEUROLOGICAL: Gross neurological examination did not reveal any focal deficits. SKIN: No rashes. ASSESSMENT AND PLAN: 1. Acute hypercapnic respiratory failure secondary to chronic obstructive pulmonary disease exacerbation. 2. Acute hypoxic respiratory failure secondary to right middle lobe pneumonia along with right-sided pleural effusion, malignant effusion. 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 Since his sodium remained stable, I am not giving him any sodium pills and patient does eat a lot of salt at home. 3. Sepsis secondary to left-sided pneumonia. 4. Depression. 5. Hyperlipidemia. DISCHARGE DIET: Low cholesterol diet. Activity as tolerated. Follow up with his primary care physician and Oncology. His PCP in 3 to 5 days, Spent greater than 35 minutes in total discharge process. [facility] HOSPITALDevendra
--- NOTE | 2016-11-29 09:44 | P.PN ---
Subjective Principal diagnosis: Recurrent left pleural effusion, stage IV lung cancer. Postop day #2 Pleurx catheter placement. Patient currently ambulating in room in no apparent distress. States his shortness of breath has returned and that his catheter is not draining. Objective - Vital Signs Vital signs: Vital Signs Temp 98.1 F 11/29/16 07:00 Pulse 118 H 11/29/16 07:00 Resp 20 11/29/16 07:00 BP 108/73 11/29/16 07:00 Pulse Ox 95 11/29/16 07:59 Intake & Output 11/28/16 11/29/16 11/29/16 18:59 06:59 18:59 Intake Total 675 670 Output Total 70 30 70 Balance 605 640 -70 Weight 70 kg Intake: IV 60 80 ns@10 60 80 Intake, IV Titration 250 Amount Vancomycin 1,500 mg In 250 Sodium Chloride 0.9% 250 ml @ 125 mls/hr IVPB Q8H [facility] Rx#:[id number] Oral 365 590 Output: Chest Tube Drainage 30 Pleural Catheter Left 30 Lateral Chest Drainage 70 70 Left Lateral Chest 70 70 Other: Voiding Method Toilet Urinal # Voids 1 - Constitutional General appearance: Present: cooperative, no acute distress - Respiratory Details: Lungs sounds very diminished bilaterally, respirations even and nonlabored. Currently on 3 L nasal cannula which patient turned up himself, O2 turned back down to 2 L nasal cannula. Pleurx cath attached to atrium at -20 cm wall suction, minimal drainage. - Cardiovascular Details: S1, S2 present. No murmurs rubs or gallops. Tachycardic rate, regular rhythm. No edema present, palpable radial, DP, PT pulses. - Gastrointestinal Gastrointestinal Comment(s): Abdomen soft, nontender, nondistended. Active bowel sounds 4 quadrants. - Genitourinary Genitourinary Comment(s): Voiding clear yellow urine. - Musculoskeletal Musculoskeletal Comment(s): Ambulating in room without difficulty - Psychiatric Psychiatric: Present: A&O x's 3 - Allied health notes Allied health notes reviewed: RT - Labs CBC & Chem 7: 11/29/16 05:20 11/29/16 05:20 Labs: Abnormal Lab Results - Last 24 Hours (Table) 11/29/16 11/29/16 11/29/16 Range/Units 05:20 05:20 05:24 WBC 14.4 H (3.8-10.6) k/uL RBC 3.99 L (4.30-5.90) m/uL Hgb 12.6 L (13.0-17.5) gm/dL Hct 38.2 L (39.0-53.0) % Plt Count 613 H (150-450) k/uL Neutrophils # 12.2 H (1.3-7.7) k/uL Lymphocytes # 0.8 L (1.0-4.8) k/uL Sodium 128 L (137-145) mmol/L Chloride 90 L (98-107) mmol/L Carbon Dioxide 32 H (22-30) mmol/L BUN 21 H (9-20) mg/dL Creatinine 0.60 L (0.66-1.25) mg/dL Glucose 105 H (74-99) mg/dL AST 73 H (17-59) U/L Alkaline Phosphatase 189 H (38-126) U/L CK-MB (CK-2) 3.2 H* (0.0-2.4) ng/mL Total Protein 5.3 L (6.3-8.2) g/dL Albumin 2.5 L (3.5-5.0) g/dL Microbiology - Last 24 Hours (Table) 11/24/16 12:00 Anaerobic Culture - Final Pleural Fluid 11/24/16 12:00 Gram Stain - Final Pleural Fluid Body Fluid Culture - Final - Imaging and Cardiology Chest x-ray: image reviewed Assessment and Plan (1) Dyspnea Status: Acute (2) Pleural effusion Status: Acute (3) Pneumonia Status: Acute (4) Small cell carcinoma of left lung Status: Acute Plan: 1. POD #2 Pleurx catheter placement. 2. Continue to monitor progress. 3. Aggressive pulmonary hygiene. 4. Appreciate pulmonary, oncology recommendations. 5. Will flush Pleurx cath with saline. 6. Teaching to be done with family regarding Pleurx cath. 7. May cap Pleurx catheter and discharged home from cardiac surgery standpoint when okay with primary care Time with Patient: Greater than 30
[2016-11-29] MEDS ORDERED: METOPROLOL TARTRATE 12.5 MG TAB PO STA (11:44)
--- NOTE | 2016-11-29 12:09 | CDI ---
In responding to this query, please exercise your independent professional judgment. The [facility] Coding Staff and Clinical Documentation Specialists appreciate your assistance in clarifying documentation, maintaining compliance with coding guidelines, accurately documenting patients condition and capturing severity of illness. The fact that a question is asked does not imply that any particular answer is desired or expected. Communication forms are a method of clarifying documentation and are not made part of the Legal Health Record. Thank you in advance for your clarification. Last Revision, January 2016 Enrique Alfonso [address] [facility] [place] [address] Documentation Clarification Form Date: 11/29/2016 12:00:00 PM From: Magdalena Hoff Admit Date: 11/23/2016 4:23:00 PM Patient Name: Pako Epperson Visit Number: [id number] Dr. Zion Gil The final diagnosis of the pathology report states : 'left pleural fluid: positive for metastatic small cell carcinoma' - reported on 11/28. Documentation states : 'parapneumonic effusion' per d/c summary Patient history/risk factors: Non-small cell lung cancer recently diagnosed per Dr Faust's H&P Recurrent pleural effusion Clinical Indicators: see Path report noted above Treatment: Thoracentesis left side Placement of left PleurX catheter In your professional opinion, do you agree with the pathology report specifying the Pleural Effusion as a Malignant Pleural Effusion? (please provide written documentation) Yes No Other (please specify) Unable to determine Please document in your progress notes and discharge summary in order to capture severity of illness and risk of mortality. Include clinical findings that support your diagnosis. FYI: Press F11 to launch patient chart Place X here if this finding has no clinical significance, is not applicable or if you are not able to provide any additional documentation. Malignant pleural effusion, dictated in f/u notes, not parapneumonic. MTDD
[2016-11-29] MEDS: LEVOFLOXACIN 750 MG TAB PO SCH (14:42)
[2016-11-29 14:47] VITALS: BMI 19.8
[2016-11-29] MEDS ORDERED: FUROSEMIDE 10 MG/ML 4 ML VIAL IV SCH (15:30)
--- NOTE | 2016-11-29 17:26 | PN ---
Patient is admitted with left sided pleural effusion. The patient was treated for COPD exacerbation, but patient has increasing pulmonary edema. I am obtaining an echocardiogram. Patient may have diastolic dysfunction. I will start him on Lasix. I will hold his discharged today. Patient tachycardia improved with increasing metoprolol, although that is just symptomatic treatment and his tachycardia is probably because of two reasons: 1. Pulmonary edema and 2. Left sided pleural effusion although it is getting worse. It appears to be stable for me. On the x-ray although patient has increased pulmonary vascular markings. REVIEW OF SYSTEMS: CARDIOVASCULAR: No chest pain, no orthopnea, no PND, no palpitations. PULMONARY: Fairly stable clinically, he feels actually better today. GASTROINTESTINAL: No diarrhea, nausea or vomiting. No abdominal pain. Normoactive bowel sounds. NEUROLOGIC: No headaches, no weakness, no numbness. Medications are reviewed. PHYSICAL EXAMINATION: Temperature 98.1, pulse of 118, respiratory rate of 20, blood pressure is 108/73, saturating at 95% on 3 L O2 by nasal cannula. GENERAL: The patient is alert and oriented x3, not in any acute distress. Well developed, well nourished. HEENT: Pupils are round and equally reacting to light. EOMI. No scleral icterus. No conjunctival pallor. Normocephalic, atraumatic. No pharyngeal erythema. No thyromegaly. CARDIOVASCULAR: S1 and S2 present. No murmurs, rubs, or gallops. PULMONARY: Absent breath sounds in the left lower lung junior posteriorly. On the right side, there are minimal bibasilar crackles that were appreciated. ABDOMEN: Soft, nontender, nondistended, normoactive bowel sounds. No palpable organomegaly. MUSCULOSKELETAL: No joint swelling or deformity. EXTREMITIES: No cyanosis, clubbing, or pedal edema. NEUROLOGICAL: Gross neurological examination did not reveal any focal deficits. SKIN: No rashes. LABORATORY DATA: CBC and BMP are abnormal for low sodium of 130. 128 which is hypovolemic hyponatremia. FINAL DIAGNOSIS(ES): 1. Acute hypercapnic respiratory failure secondary to chronic obstructive pulmonary disease exacerbation that improved. 2. Acute hypoxic respiratory failure secondary to congestive heart failure, possible congestive heart failure exacerbation. Patient has possible diastolic dysfunction. Patient has left-sided malignant effusion as well. 3. Hyponatremia appears to be hypervolemic hyponatremia versus syndrome of inappropriate antidiuretic hormone. We will give him Lasix and see how he responds. 4. Depression. 5. Small cell lung cancer. 6. Cancer cachexia. PLAN: Hold his discharge today. Continue with PleurX catheter care. Patient had a PleurX catheter that was placed because of malignant left-sided pleural effusion.
[2016-11-29] MEDS: METOPROLOL TARTRATE 25 MG TAB PO SCH (20:32)
[2016-11-30] MEDS: HYDROcodone/APAP 5-325MG 1 EACH TAB PO PRN ×3 (00:30→17:22)
[2016-11-30] MEDS: HYDROmorphone 1 MG/ML 1 ML SYRINGE IVP PRN ×4 (03:09→22:56)
[2016-11-30] MEDS: SYMBICORT 160-4.5 MCG INHALER INHALATION SCH ×2 (07:05→21:22)
[2016-11-30] MEDS: PANTOPRAZOLE 40 MG TABLET PO SCH (07:53)
[2016-11-30] MEDS: HEPARIN SODIUM,PORCINE 5,000 UNIT/ML 1 ML VIAL SQ SCH ×2 (07:55→20:43)
[2016-11-30] MEDS: predniSONE 20 MG TAB PO SCH (07:56)
[2016-11-30] MEDS: METOPROLOL TARTRATE 25 MG TAB PO SCH ×2 (07:56→20:43)
--- NOTE | 2016-11-30 08:09 | P.PN ---
Subjective Principal diagnosis: Recurrent left pleural effusion, stage IV lung cancer. Postop day #3 Pleurx catheter placement. Patient sitting up in bed, states he feels slightly worse, complains of some shortness of breath. Objective - Vital Signs Vital signs: Vital Signs Temp 97.7 F 11/30/16 07:00 Pulse 114 H 11/30/16 07:00 Resp 18 11/30/16 07:00 BP 110/59 11/30/16 07:00 Pulse Ox 97 11/30/16 07:00 Intake & Output 11/29/16 11/30/16 11/30/16 18:59 06:59 18:59 Intake Total 590 Output Total 140 Balance -140 590 Weight 70 kg 65 kg Intake: Oral 590 Output: Drainage 140 Left Lateral Chest 140 Other: Voiding Method Toilet Toilet Urinal Urinal # Voids 3 2 - Respiratory Details: Lungs sounds diminished bilaterally, respirations even and nonlabored. Left Pleurx cath present and capped. - Cardiovascular Details: S1-S2 present. No murmurs rubs or gallops. Regular rate and rhythm. No edema present. - Gastrointestinal Gastrointestinal Comment(s): Abdomen soft, nontender, nondistended. Bowel sounds active 4 quadrants. Tolerating diet. - Psychiatric Psychiatric Comment(s): Patient appears more anxious than yesterday but is refusing ordered Xanax. - Allied health notes Allied health notes reviewed: nursing - Labs CBC & Chem 7: 11/29/16 05:20 11/29/16 05:20 - Imaging and Cardiology Chest x-ray: image reviewed Assessment and Plan (1) Dyspnea Status: Acute (2) Pleural effusion Status: Acute (3) Pneumonia Status: Acute (4) Small cell carcinoma of left lung Status: Acute Plan: 1. POD #3 Pleurx catheter placement. 2. Continue to monitor progress. 3. Aggressive pulmonary hygiene. 4. Appreciate pulmonary, oncology recommendations. 5. Teaching to be done with family regarding Pleurx cath. 6. May discharge home from cardiac surgery standpoint when okay with primary care Time with Patient: Less than 30
--- NOTE | 2016-11-30 08:18 | XR ---
EXAMINATION TYPE: XR chest 2V DATE OF EXAM: 11/30/2016 6:20 AM COMPARISON: 11/29/2016 HISTORY: Pleural catheter placement FINDINGS: Diffuse interstitial pattern in the right noted with near complete opacification of the left hemithor ax. Catheter seen overlying the left lower lobe. Appears stable. Biapical pleural thickening. IMPRESSION: 1. Stable near complete opacification of the left hemithorax. Left-sided catheter is stable in positi on. If there is no drainage from the left-sided chest tube consider mucous plug or endobronchial lesi on 2. Underlying COPD and diffuse interstitial pattern noted. Given the basis of interstitial edema or c hronic pulmonary fibrosis.
[2016-11-30 08:35] LABS: Anion Gap 10 mmol/L; Blood Urea Nitrogen 19 mg/dL (9-20); Calcium 8.2 mg/dL (8.4-10.2); Carbon Dioxide 28 mmol/L (22-30); Chloride 90 mmol/L (98-107); Glucose 148 mg/dL (74-99); Non-African American GFR(MDRD) >60 (>60 ml/min/1.73 sqM); Potassium 4.9 mmol/L (3.5-5.1); Sodium 128 mmol/L (137-145)
[2016-11-30] MEDS: DOCUSATE 100 MG CAP PO SCH ×2 (08:57→20:43)
[2016-11-30] MEDS: MORPHINE SULFATE ER 15 MG TABLET PO SCH ×2 (08:58→20:42)
--- NOTE | 2016-11-30 08:58 | DS ---
DATE OF ADMISSION: 11/23/2016 DATE OF DISCHARGE: Please consider by yesterday's discharge summary as progress note. Please refer to that discharge summary for further details of discharge. The patient remained tachycardiac in spite of metoprolol. His tachycardia is probably related to pleural effusion on the left side. CT is negative for pulmonary embolism and TSH is essentially within normal limits. Patient's recent chest x-ray is showing worsening pleural effusion, although patient was cleared by Pulmonology and Cardiothoracic Surgery to be discharged because of which I increased the dose of metoprolol. I did see and evaluate the patient today. Patient although clinically feeling better and patient will be discharged today in stable medical condition to home with home care. Please refer to my discharge summary from yesterday for further details
[2016-11-30] MEDS ORDERED: FUROSEMIDE 10 MG/ML 4 ML VIAL IV SCH (09:00)
--- NOTE | 2016-11-30 10:14 | ECHOF ---
Referral Reason:CHF MEASUREMENTS -------- HEIGHT: 182.9 cm WEIGHT: 69.8 kg BP: IVSd: 1.1 cm (0.6 - 1.1) LVIDd: 3.9 cm (3.9 - 5.3) LVPWd: 1.4 cm (0.6 - 1.1) IVSs: 1.4 cm LVIDs: 3.9 cm LVPWs: 1.1 cm Ao Diam: 3.7 cm (2.0 - 3.7) AV Cusp: 2.4 cm (1.5 - 2.6) LA Diam: 2.8 cm (2.7 - 3.8) MV EXCURSION: 18.807 mm (> 18.000) MV EF SLOPE: 52 mm/s (70 - 150) EPSS: 0.8 cm MV E Vineet: 0.45 m/s MV DecT: 259 ms MV A Vineet: 0.89 m/s MV E/A Ratio: 0.50 FINDINGS -------- Sinus rhythm. This was a technically good study. There is mild concentric left ventricular hypertrophy. Overall left ventricular systolic function is low-normal with, an EF between 50 - 55 %. The right ventricle is normal in size. The left atrial size is normal. The right atrial size is normal. There is mild aortic valve sclerosis. There is no evidence of aortic regurgitation. Mild mitral annular calcification present. Mild mitral regurgitation is present. No regurgitation noted There is mild pulmonary hypertension. The right ventricular systolic pressure, as measured by Doppler, is {RVSP}. The pulmonic valve was not well visualized. The aortic root size is normal. There is a moderate, generalized pericardial effusion present. CONCLUSIONS -------- 1. There is mild concentric left ventricular hypertrophy. 2. Overall left ventricular systolic function is low-normal with, an EF between 50 - 55 %. 3. There is mild aortic valve sclerosis. 4. Mild mitral annular calcification present. 5. Mild mitral regurgitation is present. 6. No regurgitation noted 7. There is mild pulmonary hypertension. 8. The right ventricular systolic pressure, as measured by Doppler, is {RVSP}. 9. There is a moderate, generalized pericardial effusion present. RADIAL DRILL PRESS OPERATOR: Loida Kapadia RDCS
[2016-11-30] MEDS: LEVOFLOXACIN 750 MG TAB PO SCH (15:35)
--- NOTE | 2016-11-30 16:28 | P.PN ---
Subjective Principal diagnosis: Malignant pleural effusion, SCLC Pt seen in follow up, nursing was concerned as pt was aking if he should give up and go hospice. Pt is breathing fairly well, he has strong cough, thick sputum sometimes expectorated, no hemoptysis, he denies nausea, appetite is decent, he does not feel palpitations, mild constipation, he is ambulating independently. Objective - Vital Signs Vital signs: Vital Signs Temp 98 F 11/30/16 15:00 Pulse 110 H 11/30/16 15:00 Resp 16 11/30/16 15:00 BP 90/62 11/30/16 15:00 Pulse Ox 95 11/30/16 15:00 Intake & Output 11/29/16 11/30/16 11/30/16 18:59 06:59 18:59 Intake Total 590 500 Output Total 140 Balance -140 590 500 Weight 70 kg 65 kg Intake: IV 0 ns@10 0 Oral 590 500 Output: Drainage 140 Left Lateral Chest 140 Other: Voiding Method Toilet Toilet Toilet Urinal Urinal Urinal # Voids 3 2 1 - Constitutional General appearance: Present: cooperative, no acute distress, thin - EENT Eyes: Present: anicteric sclerae, EOMI, normal appearance ENT: Present: normal oropharynx - Respiratory Respiratory: right: CTA, left: diminished, dullness - Cardiovascular Details: tachycardia Heart sounds: normal: S1, S2 - Peripheral edema foot Peripheral Edema: bilateral: 2+ - Gastrointestinal General gastrointestinal: Present: normal bowel sounds, scaphoid, soft. Absent : absent bowel sounds, decreased bowel sounds, distended, hepatomegaly, hyperactive bowel sounds, organomegaly, rigid, splenomegaly, tenderness, umbilical hernia, ventral hernia - Integumentary Integumentary Comment(s): multiple scratched on BLE - Neurologic Neurologic: Present: CNII-XII intact - Musculoskeletal Musculoskeletal: Present: strength equal bilaterally - Psychiatric Psychiatric: Present: A&O x's 3, appropriate affect, intact judgment & insight - Labs CBC & Chem 7: 11/29/16 05:20 11/30/16 07:24 Labs: Abnormal Lab Results - Last 24 Hours (Table) 11/30/16 Range/Units 07:24 Sodium 128 L (137-145) mmol/L Chloride 90 L (98-107) mmol/L Creatinine 0.52 L (0.66-1.25) mg/dL Glucose 148 H (74-99) mg/dL Calcium 8.2 L (8.4-10.2) mg/dL - Imaging and Cardiology Chest x-ray: report reviewed CT scan - chest: report reviewed ECHO report reviewed Assessment and Plan (1) Tachycardia Narrative/Plan: Pt is being seen by Cardiology, pt is currently on beta isabella, await evaluation and recommendations. Status: Acute (2) Pleural effusion Narrative/Plan: Malignant pleural effusion, pt is s/p pleurex drain on the left, stable breathing. Status: Acute (3) Small cell carcinoma of left lung Narrative/Plan: SCLC extensive disease. Pt was wondering if he should just go hospice. SCLC can initially have a good response to treatment, duration of that response varies. Pt is in decent shape and as long as he can be medically stabilized there is no reason not to give chemotherapy a chance. Will continue to follow pt and see what attending and consulting Physicians have to say about pt progress with management. Status: Acute
--- NOTE | 2016-11-30 19:30 | PN ---
Patient was admitted with ( ). Patient continues to have ( ) and patient has Pleurx catheter and patient was cleared by Cardiovascular Surgery and Pulmonary, but patient remains tachycardic. I believe his tachycardia is because of hypoxia. The patient was given, yesterday and today, a dose of Lasix because of association of pulmonary edema. ( ) discussion at this point of time. Echocardiogram showed normal ejection fraction. We are consulting Cardiology because of the persistent tachycardia in spite of ruling out all other medical problems. His tachycardia is most probably due to hypoxemia from pleural effusion and emphysema. The patient is on 25 mg beta isabella and consulting Cardiology to see if there are any further recommendations to control his heart rate. Patient's tachycardia is basically sinus tachycardia, ruled out pulmonary embolism and TSH was essentially within normal limits. REVIEW OF SYSTEMS: CARDIOVASCULAR: No chest pain, no orthopnea, no PND, no palpitations. PULMONARY: Denied any shortness of breath. No cough or hemoptysis. GASTROINTESTINAL: No diarrhea, nausea or vomiting. No abdominal pain. Normoactive bowel sounds. NEUROLOGIC: No headaches, no weakness, no numbness. Medications were reviewed. PHYSICAL EXAMINATION: VITAL SIGNS: Temperature 98.0, pulse of 110 at rest and goes up to 130 upon ambulation, respiratory rate 15, blood pressure is 90/62. GENERAL: The patient is alert and oriented x3, not in any acute distress. Well developed, well nourished. HEENT: Pupils are round and equally reacting to light. EOMI. No scleral icterus. No conjunctival pallor. Normocephalic, atraumatic. No pharyngeal erythema. No thyromegaly. CARDIOVASCULAR: S1 and S2 present. Patient is tachycardic, sinus tachycardia. No murmurs, rubs, or gallops. PULMONARY: Chest is clear to auscultation, no wheezing or crackles. ABDOMEN: Soft, nontender, nondistended, normoactive bowel sounds. No palpable organomegaly. MUSCULOSKELETAL: No joint swelling or deformity. EXTREMITIES: No cyanosis, clubbing, or pedal edema. NEUROLOGICAL: Gross neurological examination did not reveal any focal deficits. SKIN: No rashes. LABORATORY DATA: CBC, basic metabolic profile no significant change compared to yesterday. Sodium remains at 128. ASSESSMENT AND PLAN: 1. Acute hypercapnic respiratory rate secondary to chronic obstructive pulmonary disease acute exacerbation, which improved. 2. Acute hypoxic respiratory failure secondary to congestive heart failure diastolic dysfunction, which resolved. Lasix was discontinued because dizziness today, which I forgot to dictate earlier, and persistent tachycardia and low blood pressures. Patient may have possible diastolic dysfunction with mild acute exacerbation. Left-sided pleural effusion is also contributing to his hypoxemia. 3. Left-sided pleural effusion, which is malignant effusion. 4. Hyponatremia. 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 Sodium remains stable. No further intervention at this point of time. 5. Depression. 6. Small cell lung cancer. The patient will get chemotherapy once he is more stabilized. 7. Severe cachexia. 8. Tachycardia due to above-mentioned reasons and will undergo further evaluation by Cardiology.
[2016-11-30] MEDS: NICOTINE 21MG/24HR PATCH TRANSDERM SCH (19:46)
[2016-12-01] MEDS: ALPRAZolam 0.25 MG TAB PO PRN (04:31)
[2016-12-01] MEDS: HYDROmorphone 1 MG/ML 1 ML SYRINGE IVP PRN (06:27)
[2016-12-01] MEDS: SYMBICORT 160-4.5 MCG INHALER INHALATION SCH (07:32)
--- NOTE | 2016-12-01 07:40 | XR ---
EXAMINATION TYPE: Chest x-ray 2 views DATE OF EXAM: 12/01/2016 6:45 AM COMPARISON: 11/30/2016 HISTORY: Pleural catheter placement FINDINGS: Diffuse interstitial pattern in the right noted with near complete opacification of the left hemithor ax. Catheter seen overlying the left lower lobe. Appears stable. Biapical pleural thickening. IMPRESSION: 1. 1. Stable near complete opacification of the left hemithorax. Left-sided catheter is stable in pos ition. 2. Underlying COPD and diffuse interstitial pattern noted. Could be on the basis of interstitial robin a or chronic pulmonary fibrosis. .
[2016-12-01 07:47] LABS: Anion Gap 6 mmol/L; Blood Urea Nitrogen 23 mg/dL (9-20); Calcium 8.3 mg/dL (8.4-10.2); Carbon Dioxide 35 mmol/L (22-30); Chloride 90 mmol/L (98-107); Glucose 111 mg/dL (74-99); Non-African American GFR(MDRD) >60 (>60 ml/min/1.73 sqM); Potassium 5.4 mmol/L (3.5-5.1); Sodium 131 mmol/L (137-145)
[2016-12-01] MEDS: MORPHINE SULFATE ER 15 MG TABLET PO SCH (09:02)
[2016-12-01] MEDS: NICOTINE 21MG/24HR PATCH TRANSDERM SCH (09:03)
[2016-12-01] MEDS: METOPROLOL TARTRATE 25 MG TAB PO SCH (09:09)
[2016-12-01] MEDS: DOCUSATE 100 MG CAP PO SCH (09:09)
[2016-12-01] MEDS: HEPARIN SODIUM,PORCINE 5,000 UNIT/ML 1 ML VIAL SQ SCH (09:09)
[2016-12-01] MEDS: PANTOPRAZOLE 40 MG TABLET PO SCH (09:09)
[2016-12-01] MEDS: predniSONE 20 MG TAB PO SCH (09:09)
[2016-12-01] MEDS: IPRATROPIUM-ALBUTEROL 3 ML NEB INHALATION PRN ×2 (11:28→16:30)
[2016-12-01 15:01] VITALS: TEMP 97.9
[2016-12-01] MEDS: HYDROcodone/APAP 5-325MG 1 EACH TAB PO PRN (15:14)
[2016-12-01] MEDS: LEVOFLOXACIN 750 MG TAB PO SCH (15:15)
[2016-12-01 15:46] VITALS: RESP 16
[2016-12-01 15:54] VITALS: BP 102/56
[2016-12-01 16:48] VITALS: PULSE 100
--- NOTE | 2016-12-01 17:15 | CONS ---
DATE OF CONSULTATION: This is a gentleman who has lung cancer. He had a left pleural effusion. He has PleurX catheter placed for drainage. Cardiology was consulted because of sinus tachycardia and elevated heart despite institution of beta blockers. The patient seems pretty comfortable. He complains of a cough with some phlegm. This is yellow green in color. Denies any chest discomfort or angina like symptoms. No dizziness or lightheadedness. He was mildly orthostatic only by pulse. Review of the 12 lead ECG shows sinus tachycardia as well as frequent premature atrial contractions. This may be related to the catheter in his left pleural space and juxtaposition to the pericardium. Past history of smoking. Past history of alcohol use. He denies any diabetes, hypertension or dyslipidemia and no cardiac history. REVIEW OF SYSTEMS: Documented in the chart. He denies any fever, chills, or rigors. He does have a cough and a little bit of expectoration. No hematuria, dysuria. No strokes or seizures. No nausea, vomiting, or diarrhea. No skin lesions. On examination, his pulse rate ranges from 100 to 110 beats a minute and this slightly irregular on account of the PACs. Blood pressure is in normal range. Head and neck examination is normal. Heart sounds are S1, S2 soft. No murmurs or gallops. Breath sounds are reduced in the left side. No rhonchi. No crackles. ABDOMEN: Soft. EXTREMITIES: Warm. He is cachectic. IMPRESSION: 1. History of lung cancer awaiting chemotherapy. 2. Sinus tachycardia. 3. Frequent PACs. 4. Left pleural effusion with recent placement of a PleurX catheter for drainage of fluid. 5. TSH is normal. 6. Sinus tachycardia is possibly as a result of either hypoxia or ( ) stasis. He does complain of the cough and expectoration of yellow-green phlegm, and he was a bit hypoxic and may be related to hypoxemia. He has been given beta blockers. I do not think this would really help but he may continue to take it with ( ) regarding proceed with chemotherapy depends upon oncologist and he may do so ( ) sinus tachycardia as long as he does not have an underlying infection he may go home from a cardiac standpoint today. I reviewed his repeat 12 lead ECG on him today and it shows sinus tachycardia with PACs. No ST segment abnormalities.
--- NOTE | 2016-12-01 17:27 | DS ---
DATE OF ADMISSION: 11/23/2016 DATE OF DISCHARGE: FINAL DIAGNOSES: 1. Shortness of breath, possibly multifactorial including left-sided pleural effusion, possible pneumonia as well as lung malignancy, status post 2.8 serosanguineous fluid. 2. Status post plerx on the left. 3. Recently diagnosed small cell cancer with lymphadenopathy, probably stage IV status post cervical lymph node biopsy. 4. Pneumonia, possibly gram-negative possibly postobstructive with possible sepsis, present on admission. 5. Congestive heart failure, acute exacerbation with acute on chronic diastolic dysfunction, ejection fraction 50% to 55%. 6. Increased lactic acid, present on admission, possible related to sepsis. 7. Increased WBC. 8. Hypoalbuminemia with mild to moderate protein calorie malnutrition. 9. Hyponatremia. 10. Hypovolemia. 11. Hyperlipidemia. 12. Hemorrhoids. 13. History of depression. 14. Remote history of nicotine dependence. 15. FULL CODE. DISCHARGE DISPOSITION: The patient will be discharged in stable condition with guarded prognosis. Discharge cleared by multiple consultants. Total time taken 35 minutes. HISTORY OF PRESENT ILLNESS: This 56-year-old gentleman with a past medical history of multiple medical problems admitted with shortness of breath which is probably multifactorial. The patient also had a pleural effusion and drainage and PleurX catheter inserted. Patient treated with antibiotics and the rest of the medications improved significantly. On exam, vitals are stable. CARDIOVASCULAR SYSTEM: S1, S2 muffled. Respiratory: Diminished at the bases. Scattered rhonchi. DISCHARGE ADVICE AND MEDICATIONS: 1. Diet is cardiac. 2. Activity limited until follow-up. 3. Follow-up with Dr. Melton in two to three days. 4. Follow up with multiple consultants as recommended. 5. Home medications are Xanax 0.25 t.i.d. p.r.n. 6. Tylenol #3 q.8 p.r.n. 7. Ventolin HFA p.o. q.i.d. p.r.n. 8. Symbicort 160/4.5 two puffs b.i.d. 9. Lasix 40 mg daily. 10. [place] 5 mg q.6 p.r.n. 11. Albuterol Atrovent q.i.d. and p.r.n. 12. Levaquin 750 mg p.o. daily. 13. Lopressor 25 mg p.o. b.i.d. 14. MS Contin 50 mg p.o. b.i.d. and 30 mg t.i.d. p.r.n. 15. Multivitamin one daily. 16. Habitrol 21 daily. 17. MiraLax 17 grams. 18. Compazine 10 mg. 19. Zantac 150 mg b.i.d. 20. Prednisone as taper 40 mg daily for 3 days, 30 for 3 days, 20 for 3 days, 10 for 3 days. MTDD
== END 2016-12-01 19:00 | disposition home health service (06) | DRG 871 ==
LOC: EC 14:08 → 6SEL 16:23 → 5ONC 11-25 16:03
PROVIDERS: ADMIT Internal Medicine; ATTEND Internal Medicine
PROC: 0W9B3ZZ Drainage of Left Pleural Cavity, Percutaneous Approach (ICD-10-PCS; principal; 2016-11-24)
PROC: 0B9P30Z Drainage of Left Pleura with Drainage Device, Percutaneous Approach (ICD-10-PCS; 2016-11-27)
DX: A41.9 Sepsis, unspecified organism (principal); J15.6 Pneumonia due to other Gram-negative bacteria; I50.33 Acute on chronic diastolic (congestive) heart failure; J91.0 Malignant pleural effusion; J96.02 Acute respiratory failure with hypercapnia; J96.01 Acute respiratory failure with hypoxia; E44.0 Moderate protein-calorie malnutrition; C34.92 Malignant neoplasm of unspecified part of left bronchus or lung; R64 Cachexia; J44.0 Chronic obstructive pulmonary disease with (acute) lower respiratory infection; E87.1 Hypo-osmolality and hyponatremia; J44.1 Chronic obstructive pulmonary disease with (acute) exacerbation; E86.1 Hypovolemia; F32.9 Major depressive disorder, single episode, unspecified; I49.1 Atrial premature depolarization; E78.5 Hyperlipidemia, unspecified; F10.21 Alcohol dependence, in remission; Z90.49 Acquired absence of other specified parts of digestive tract; Z87.891 Personal history of nicotine dependence; Z79.891 Long term (current) use of opiate analgesic; Z79.899 Other long term (current) drug therapy
CPT/HCPCS: 36415; 70553; 71010; 71020; 71275; 76000; 76604; 77001; 80048; 80053; 80202; 81003; 82533; 82550; 82553; 83605; 83735; 83880; 84443; 84484; 85025; 85379; 85610; 85730; 87040; 87070; 87075; 87086; 87205; 88108; 88305; 88341; 88342; 93005; 93306; 94640; 94760; 96365; 96366; 96367; 96375; 99285